=== PATIENT | male | born 1955 | race Caucasian/White ===

== ENCOUNTER 2019-12-18 12:46 | Inpatient (IN) | payer OTHER ==
[~2019-12-18] VITALS: Ht 162.6 cm; Wt 73.0 kg
--- NOTE | 2019-12-18 12:50 | NUR ---
PATIENT TO ER #1 WITH CLINICAL TRANSFORMATION SPECIALIST, SAO2, ABP AND STAT BLOOD GLUCOSE 461
[2019-12-18] MEDS ORDERED: NACL 0.9% 1,000 ML IV ONE (13:00)
--- NOTE | 2019-12-18 13:08 | NUR ---
ER Dr. Pérez at bedside examining patient.
--- NOTE | 2019-12-18 13:10 | NUR ---
Patient presented to ER C/O medication overdose. Patient BIB ACLS, A&Ox4, skin pink & warm, afebrile, denies pain, denies N/V/D. Patient states he gave himself 100 unit pen insulin 70/30 instead of 30 unit insulin pen by accident.
[2019-12-18] MEDS ORDERED: cefTRIAXone 1 GM IVPB PREMIX 50 ML IV ONE (13:15)
[2019-12-18 13:32] LABS: BASOPHILS % (AUTO) 0.5 % (0.0-2.0); EOSINOPHILS # (AUTO) 0.1 K/uL (0.0-0.4); EOSINOPHILS % (AUTO) 2.3 % (0.0-4.0); HEMATOCRIT 31.9 % (36-54); HEMOGLOBIN 11.1 g/dL (14.0-18.0); LYMPHOCYTES # (AUTO) 0.6 K/uL (1.0-5.5); LYMPHOCYTES % (AUTO) 14.6 % (20.5-51.5); MEAN CORPUSCULAR HEMOGLOBIN 30 pg (27-31); MEAN CORPUSCULAR HGB CONC 35 % (32-36); MEAN CORPUSCULAR VOLUME 85 fL (79.0-98.0); MONOCYTES # (AUTO) 0.5 K/uL (0.0-1.0); MONOCYTES % (AUTO) 11.6 % (1.7-9.3); NEUTROPHILS # (AUTO) 2.9 K/uL (1.8-7.7); PLATELET COUNT (AUTO) 68 K/uL (130-430); RED BLOOD CELL COUNT(AUTO) 3.77 MIL/uL (4.2-6.2); RED CELL DISTRIBUTION WIDTH 18.9 % (9.0-15.0); WHITE BLOOD COUNT (AUTO) 4.1 K/uL (4.8-10.8)
[2019-12-18 13:35] VITALS: BP_SYST 131
--- NOTE | 2019-12-18 13:40 | NUR ---
# 20 gauge angiocath placed to right arm. Use of asceptic technique. Opsite placed over site. Blood return noted. Blood for lab drawn from site. Flushed with 10 cc of normal saline. No evidence of infiltration noted. Patient tolerated well. Medicated per MD orders. IVF infusing with no s/s of infiltration at this time. Will cont to monitor
[2019-12-18 13:46] LABS: BILIRUBIN,URINE NEGATIVE (NEGATIVE); BLOOD, URINE NEGATIVE (NEGATIVE); CLARITY/URINE CLEAR (CLEAR); COLOR,URINE YELLOW (YELLOW); GLUCOSE,URINE 3+ (NEGATIVE); KETONES,URINE 1+ (NEGATIVE); LEUKOCYTE ESTERASE ,URINE TRACE (NEGATIVE); NITRITE, URINE POSITIVE (NEGATIVE); PH,URINE 6.5 (5.0-8.0); PROTEIN URINE NEGATIVE (NEGATIVE); UROBILINOGEN,URINE 0.2 (0.2-1.0)
[2019-12-18 13:49] LABS: ALBUMIN 3.1 g/dL (3.4-4.8); CALCIUM 8.6 mg/dL (8.4-11.0); CREATININE 1.32 mg/dL (0.55-1.30); POTASSIUM 5.2 mmol/L (3.5-5.1); TOTAL BILIRUBIN 1.5 mg/dL (0.0-1.0)
[2019-12-18] MEDS ORDERED: SPIR100T5 PO (13:52)
[2019-12-18] MEDS ORDERED: ASCO500C18 PO (13:52)
[2019-12-18] MEDS ORDERED: FURO-149 PO (13:52)
[2019-12-18] MEDS ORDERED: ENAL20TA70 PO (13:52)
[2019-12-18] MEDS ORDERED: RIFA550T5 PO (13:52)
[2019-12-18] MEDS ORDERED: BETH25TA PO (13:52)
[2019-12-18] MEDS ORDERED: CHOL100034 PO (13:52)
[2019-12-18] MEDS ORDERED: FOLI-43 PO (13:52)
[2019-12-18] MEDS ORDERED: PROP20TA7 PO (13:52)
[2019-12-18 14:02] LABS: BACTERIA,URINE MANY /HPF (None Seen); MUCUS,URINE 1+ /LPF (None Seen)
[2019-12-18] MEDS ORDERED: NACL 0.9% 1,000 ML IV SCH (15:18)
[2019-12-18] MEDS ORDERED: INSULIN REGULAR, HUMAN 10 UNITS/0.1 ML INJ IVP ONE (15:45)
[2019-12-18] MEDS ORDERED: DOCUSATE SODIUM 100 MG CAPSULE PO PRN (16:15)
[2019-12-18] MEDS ORDERED: MUPIROCIN 2% TOPICAL OINTMENT 22 GM NS PRN (16:15)
[2019-12-18] MEDS ORDERED: DEXTROSE 50% JECT 50 ML DISP.SYRIN IVP PRN (16:15)
[2019-12-18] MEDS ORDERED: ZOLPIDEM TARTRATE 5 MG TABLET PO PRN (16:15)
[2019-12-18] MEDS ORDERED: ACETAMINOPHEN 325 MG TABLET PO PRN (16:15)
[2019-12-18] MEDS ORDERED: POTASSIUM CHLORIDE 20 MEQ TAB.PRT.SR PO PRN (16:15)
[2019-12-18] MEDS ORDERED: cefTRIAXone 1 GM in D5W 50 ML IV ONE (16:15)
[2019-12-18] MEDS ORDERED: LORazepam 2 MG/ML VIAL IVP PRN (16:15)
[2019-12-18] MEDS ORDERED: MAGNESIUM SULFATE 50 ML IV PRN (16:15)
--- NOTE | 2019-12-18 16:16 | NUR ---
Patient will be admitted to care of DR. GOFF. Admitted to TELE unit. Will go to room 100B. Belongings list completed. Complete and up to date summary report printed. SBAR report to be given at bedside with opportunity for questions. Transfer to TELE via ACLS protocol. Licensed nurse present. IV present no signs or symptoms of infiltration.
--- NOTE | 2019-12-18 16:33 | NUR ---
ADMISSION NOTE Received patient from ER via carmen, received report from LOG GETTER. Patient admitted with diagnosis of DIABETES UNCONTROLLED. Patient oriented to hospital routine, call light, toileting and safety-patient verbalized understanding.
--- NOTE | 2019-12-18 17:20 | NUR ---
SENT HOME PT'S BELONGINGS INCLUDING HOME MEDICATIONS AND LICENSE TO PT'S FATHER, SAILAJA.
[2019-12-18] MEDS: NACL 0.9% 1,000 ML IV SCH (17:55)
[2019-12-18] MEDS: INSULIN NPH/REGULAR 70-30, 100 UNITS/ML, 10 ML VIAL SUBCUT SCH (17:58)
[2019-12-18] MEDS: INSULIN LISPRO SLIDING SCALE 100 UNITS/ML VIAL (humaLOG) SUBCUT PRN (18:02)
[2019-12-18 18:07] VITALS: BP_SYST 151
--- NOTE | 2019-12-18 18:15 | NUR ---
ROUTINE MEDS AND ACCUCHECK DONE ROUTINE MEDS ADMINISTERED ORDERED PER MD, EDUCATION GIVEN, TOLERATED WELL. ACCUCHECK DONE, INSULIN COVERAGE ADMINISTERED PER SLIDING SCALE. NO ACUTE DISTRESS NOTED. ALL NEEDS MET. CALL LIGHT IN REACH. CONTINUE TO MONITOR.
--- NOTE | 2019-12-18 18:45 | NUR ---
CLOSING NOTES PT AWAKE, ALERT, AND ORIENTED. NONLABORED BREATHING NOTED ON ROOM AIR. IV LINE INTACT AND PATENT, NO SIGNS OF INFILTRATION NOTED, FLUIDS RUNNING ORDERED PER MD. PT DENIES PAIN AND SOB AT THIS TIME. PT REQUESTED FOR RESTORIL AND NORCO IN ORDER TO SLEEP, WILL VERBALIZED TO MD. NO ACUTE DISTRESS NOTED. ALL NEEDS MET. CALL LIGHT IN REACH. FALL AND ASPIRATION PRECAUTIONS IN PLACE. WILL ENDORSE TO NOC NURSE.
--- NOTE | 2019-12-18 19:14 | NUR ---
SPOKE TO DR. GOFF REGARDING PT'S REQUEST FOR RESTORIL AND NORCO. RECEIVED ORDERS FOR RESTORIL, VERIFIED, AND CARRIED OUT.
[2019-12-18] MEDS ORDERED: HEPARIN SODIUM,PORCINE 5000 UNITS/ML VIAL SUBCUT SCH (21:00)
[2019-12-18] MEDS: TEMAZEPAM 15 MG CAPSULE PO SCH (22:00)
[2019-12-18] MEDS: RIFAXIMIN 550 MG TABLET PO SCH (23:30)
[2019-12-19 00:05] VITALS: BP_SYST 149
[2019-12-19 06:49] LABS: CALCIUM 8.2 mg/dL (8.4-11.0); CREATININE 0.74 mg/dL (0.55-1.30); POTASSIUM 4.9 mmol/L (3.5-5.1)
[2019-12-19 06:54] LABS: BASOPHILS % (AUTO) 0.3 % (0.0-2.0); EOSINOPHILS # (AUTO) 0.2 K/uL (0.0-0.4); EOSINOPHILS % (AUTO) 4.4 % (0.0-4.0); HEMATOCRIT 28.7 % (36-54); HEMOGLOBIN 10.3 g/dL (14.0-18.0); LYMPHOCYTES # (AUTO) 0.6 K/uL (1.0-5.5); LYMPHOCYTES % (AUTO) 14.7 % (20.5-51.5); MEAN CORPUSCULAR HEMOGLOBIN 30 pg (27-31); MEAN CORPUSCULAR HGB CONC 36 % (32-36); MEAN CORPUSCULAR VOLUME 82 fL (79.0-98.0); MONOCYTES # (AUTO) 0.5 K/uL (0.0-1.0); MONOCYTES % (AUTO) 12.4 % (1.7-9.3); NEUTROPHILS # (AUTO) 2.8 K/uL (1.8-7.7); NEUTROPHILS % (AUTO) 68.2 % (40.0-70.0); PLATELET COUNT (AUTO) 54 K/uL (130-430); RED BLOOD CELL COUNT(AUTO) 3.48 MIL/uL (4.2-6.2); RED CELL DISTRIBUTION WIDTH 19.2 % (9.0-15.0); WHITE BLOOD COUNT (AUTO) 4.2 K/uL (4.8-10.8)
[2019-12-19 08:00] VITALS: BP_SYST 137
--- NOTE | 2019-12-19 08:00 | NUR ---
ASSUMPTION OF CARE: RECEIVED PT A/A/OX4, DX:ALTERATION IN METABOLIC,R/T UNCONTROLLED DIABETES, AFEBRILE, VSS, NO S/S OF DISTRESS, BREATH SOUNDS ARE CLEAR, BREATHING UNLABORED, SUPRAPUBIC CATHETER IN PLACE, DRAINING CLEAR, YELLOW URINE TO GRAVITY, IV SITE INTACT, PATENT, NO REDNESS OR SWELLING, ORIENTED TO UNIT, CALL LIGHT PLACED WITHIN REACH, WILL CONT' TO MONITOR AND ASSESS.
--- NOTE | 2019-12-19 08:30 | NUR ---
VISIT: AT BEDSIDE FOR ASSESSMENT OF PT NEW ORDERS GIVEN, WILL CONT' TO MONITOR AND ASSESS.
--- NOTE | 2019-12-19 09:30 | NUR ---
DRILLER HAND: MORNING MEDS GIVEN, PER ORDERED BY Katy, TOLERATED WELL, WILL CONT' TO MONITOR AND ASSESS.
[2019-12-19] MEDS: RIFAXIMIN 550 MG TABLET PO SCH ×2 (10:08→20:59)
[2019-12-19] MEDS: cefTRIAXone 1 GM in D5W 50 ML IV SCH (10:12)
[2019-12-19] MEDS: SPIRONOLACTONE 50 MG TABLET (ALDACTONE) PO SCH (10:12)
[2019-12-19] MEDS: ENALAPRIL MALEATE 5 MG TABLET (VASOTEC) PO SCH (10:13)
[2019-12-19 11:23] VITALS: BP_SYST 145
--- NOTE | 2019-12-19 11:30 | NUR ---
GLUCOSE MONITORING: BLOOD SUGAR PZITU=598, 14 UNITS HUMALOG LISPRO INSULIN GIVEN SQ, TOLERATED WELL, WILL CONT' TO MONITOR AND ASSESS.
[2019-12-19] MEDS: INSULIN LISPRO SLIDING SCALE 100 UNITS/ML VIAL (humaLOG) SUBCUT PRN ×3 (11:45→21:13)
[2019-12-19 15:45] VITALS: BP_SYST 104
--- NOTE | 2019-12-19 17:00 | NUR ---
GLUCOSE MONITORING: BLOOD SUGAR HJVOU=586, 8 UNITS HUMALOG LISPRO INSULIN GIVEN SQ, TOLERATED WELL, WILL CONT' TO MONITOR AND ASSESS.
--- NOTE | 2019-12-19 19:20 | NUR ---
CHANGE OF SHIFT; pt. awake, alert, resting when received. no complaints at this time. IVF infusing. call light within reach.
[2019-12-19 21:00] VITALS: BP_SYST 130
[2019-12-19] MEDS: HYDROcodone/ACETAMIN 10-325 MG TAB PO PRN (21:00)
[2019-12-19] MEDS: TEMAZEPAM 15 MG CAPSULE PO SCH (21:00)
--- NOTE | 2019-12-19 21:00 | NUR ---
NOTES: pt. repositioned,had loose bm , javier care done. repositioned and turn to sides. BS checked 169, pt. did not eat, will hold sliding scale coverage. Addendum: 12/19/19 at 9932 by Eula Cortes RN wrong pt.
--- NOTE | 2019-12-19 21:00 | NUR ---
NOTES: medicated with [place] po for c/o lower back pain. repositioned self for comfort. VS checked. IVF infusing via rt. forearm. pt. wants his sleeping pill as well.
[2019-12-19] MEDS: NACL 0.9% 1,000 ML IV SCH (21:15)
--- NOTE | 2019-12-19 21:30 | NUR ---
NOTES: BS checked 239, with sliding scale coverage. due medication given. pt. needs attended. on ekg monitor and shows sinus rhythm. call light within reach.
--- NOTE | 2019-12-19 22:00 | NUR ---
NOTES: pt. son at bedside, staying for the night, charge nurse Komal caldera. Addendum: 12/19/19 at 2254 by Eula Cortes RN wrong pt.
--- NOTE | 2019-12-19 23:01 | NUR ---
NOTES: pt. resting, no further complaints.
[2019-12-20 00:29] VITALS: BP_SYST 113
--- NOTE | 2019-12-20 01:00 | NUR ---
NOTES: pt. sleeping, no distress. repositioned self.
--- NOTE | 2019-12-20 02:28 | NUR ---
NOTES: pt. awakened to replace new battery on the monitor box. no further complaints.
--- NOTE | 2019-12-20 04:07 | NUR ---
NOTES: condition unchanged. pt. been sleeping.
--- NOTE | 2019-12-20 05:26 | NUR ---
NOTES: pt. been ambulating to the restroom, had 3 BM per ZOOLOGY TEACHER Sultana. supra pubic catheter intact. pt. needs attended.
[2019-12-20] MEDS: INSULIN NPH/REGULAR 70-30, 100 UNITS/ML, 10 ML VIAL SUBCUT SCH ×2 (06:18→17:37)
[2019-12-20] MEDS: INSULIN LISPRO SLIDING SCALE 100 UNITS/ML VIAL (humaLOG) SUBCUT PRN ×4 (06:19→20:53)
[2019-12-20] MEDS: HYDROcodone/ACETAMIN 10-325 MG TAB PO PRN ×3 (06:23→20:49)
--- NOTE | 2019-12-20 06:25 | NUR ---
CLOSING NOTES; 'PT. MEDICATED FOR C/O LOWER BACK PAIN, AMBULATED TO THE RESTROOM. SUPRA PUBIC CATHETER INTACT. BS CHECKED 272 WITH SLIDING SCALE COVERAGE AND 70/30 SCHEDULED. CALL LIGHT AT BEDSIDE. IVF PATENT.
[2019-12-20 06:28] LABS: CALCIUM 7.7 mg/dL (8.4-11.0); CREATININE 0.74 mg/dL (0.55-1.30); POTASSIUM 4.5 mmol/L (3.5-5.1)
[2019-12-20 06:29] LABS: BASOPHILS % (AUTO) 0.3 % (0.0-2.0); EOSINOPHILS # (AUTO) 0.2 K/uL (0.0-0.4); EOSINOPHILS % (AUTO) 4.2 % (0.0-4.0); HEMATOCRIT 30.4 % (36-54); HEMOGLOBIN 10.8 g/dL (14.0-18.0); LYMPHOCYTES # (AUTO) 0.6 K/uL (1.0-5.5); LYMPHOCYTES % (AUTO) 15.6 % (20.5-51.5); MEAN CORPUSCULAR HEMOGLOBIN 30 pg (27-31); MEAN CORPUSCULAR HGB CONC 36 % (32-36); MEAN CORPUSCULAR VOLUME 83 fL (79.0-98.0); MONOCYTES # (AUTO) 0.4 K/uL (0.0-1.0); MONOCYTES % (AUTO) 11.1 % (1.7-9.3); NEUTROPHILS # (AUTO) 2.8 K/uL (1.8-7.7); NEUTROPHILS % (AUTO) 68.8 % (40.0-70.0); PLATELET COUNT (AUTO) 52 K/uL (130-430); RED BLOOD CELL COUNT(AUTO) 3.65 MIL/uL (4.2-6.2); RED CELL DISTRIBUTION WIDTH 18.8 % (9.0-15.0)
[2019-12-20] MEDS: NACL 0.9% 1,000 ML IV SCH ×3 (06:29→21:03)
--- NOTE | 2019-12-20 07:03 | NUR ---
ATTENDING MD SACK FILLER DR Aniyah HARTLEY (SACK FILLER FOR DR GOFF) WAS CALLED, RE: CRITICAL LABS.
--- NOTE | 2019-12-20 07:30 | NUR ---
OPENING NOTES: RECEIVED PATIENT FROM REGISTERED SALES ASSISTANT NURSE. PATIENT IS ASLEEP LAYING DOWN IN BED. PATIENT IS TOLERATING OXYGEN ON ROOM AIR WITH NO SIGNS OF DISTRESS OR SHORTNESS OF BREATH NOTED. IV SITE IS PATENT WITH NO SIGNS OF INFILTRATION NOTED. KING CATHETER INTACT AND DRAINING BY GRAVITY. PATIENT IN STABLE CONDITION. SAFETY, FALL, AND ASPIRATION PRECAUTIONS ARE IN PLACE. BED LOCKED IN LOWEST POSITION WITH CALL LIGHT IN REACH. WILL CONTINUE TO MONITOR PATIENT FOR ANY CHANGES.
[2019-12-20 08:00] VITALS: BP_SYST 118
--- NOTE | 2019-12-20 08:29 | NUR ---
Nephro consult called: for Dr. Morris (Dr Bruce diamond mounter, regarding low sodium, ordered by Dr. Knowles, spoke with Maximilian.
[2019-12-20] MEDS: cefTRIAXone 1 GM in D5W 50 ML IV SCH (09:29)
[2019-12-20] MEDS: RIFAXIMIN 550 MG TABLET PO SCH ×2 (09:30→20:47)
[2019-12-20] MEDS: SPIRONOLACTONE 50 MG TABLET (ALDACTONE) PO SCH (09:30)
[2019-12-20] MEDS: SODIUM CHLORIDE 500 MG TABLET PO SCH (09:31)
[2019-12-20] MEDS: ENALAPRIL MALEATE 5 MG TABLET (VASOTEC) PO SCH (09:31)
--- NOTE | 2019-12-20 10:20 | NUR ---
RN ROUNDS: PATIENT IS AWAKE AND ALERT x4 LAYING DOWN IN BED. PATIENT DENIES ANY PAIN AT THE MOMENT. IV SITE IS PATENT WITH NO SIGNS OF INFILTRATION NOTED. PATIENT IS TOLERATING OXYGEN ON ROOM AIR WITH NO SIGNS OF DISTRESS OR SHORTNESS OF BREATH NOTED. PATIENT IN STABLE CONDITION. WILL CONTINUE TO MONITOR PATIENT FOR ANY CHANGES.
[2019-12-20 11:28] VITALS: BP_SYST 148
[2019-12-20] MEDS: ONDANSETRON HCL 4 MG/2 ML VIAL IVP PRN ×2 (11:47→18:15)
[2019-12-20 12:06] LABS: ALBUMIN 2.8 g/dL (3.4-4.8); CALCIUM 7.6 mg/dL (8.4-11.0); CREATININE 0.78 mg/dL (0.55-1.30); POTASSIUM 4.8 mmol/L (3.5-5.1); TOTAL BILIRUBIN 1.3 mg/dL (0.0-1.0)
--- NOTE | 2019-12-20 12:20 | NUR ---
RN ROUNDS: PATIENT IS ASLEEP LAYING DOWN IN BED. PATIENT DENIES ANY PAIN AT THE MOMENT. PATIENT IS TOLERATING OXYGEN ON ROOM AIR WITH NO SIGNS OF DISTRESS OR SHORTNESS OF BREATH NOTED. IV SITE IS PATENT WITH NO SIGNS OF INFILTRATION NOTED. PATIENT IN STABLE CONDITION. WILL CONTINUE TO MONITOR PATIENT FOR ANY CHANGES.
[2019-12-20] MEDS ORDERED: SODIUM CHLORIDE 500 MG TABLET PO ONE ×2 (13:45→18:45)
[2019-12-20] MEDS ORDERED: LACTULOSE 20 GM/30 ML UDC PO ONE (13:45)
--- NOTE | 2019-12-20 14:11 | NUR ---
RN ROUNDS: PATIENT IS AWAKE AND ALERT x4 LAYING DOWN IN BED. PATIENT STATES HE HAS PAIN 6/10. PRN PAIN MEDICATION GIVEN. IV SITE IS PATENT WITH NO SIGNS OF INFILTRATION NOTED. PATIENT IN STABLE CONDITION. WILL CONTINUE TO MONITOR PATIENT FOR ANY CHANGES.
[2019-12-20 15:29] VITALS: BP_SYST 148
--- NOTE | 2019-12-20 16:40 | NUR ---
RN ROUNDS: PATIENT IS AWAKE AND ALERT x4 LAYING DOWN IN BED. PATIENT DENIES ANY PAIN AT THE MOMENT. PATIENT IS TOLERATING OXYGEN ON ROOM AIR WITH NO SIGNS OF DISTRESS OR SHORTNESS OF BREATH NOTED. PATIENT IN STABLE CONDITION. WILL CONTINUE TO MONITOR PATIENT FOR ANY CHANGES.
[2019-12-20 18:10] LABS: CALCIUM 8.1 mg/dL (8.4-11.0); CREATININE 0.92 mg/dL (0.55-1.30)
--- NOTE | 2019-12-20 18:29 | NUR ---
CLOSING NOTES: PATIENT IS AWAKE AND ALERT x4 LAYING DOWN IN BED. PATIENT IS TOLERATING OXYGEN ON ROOM AIR WITH NO SIGNS OF DISTRESS OR SHORTNESS OF BREATH NOTED. IV SITE IS PATENT WITH NO SIGNS OF INFILTRATION NOTED. KING CATHETER INTACT AND DRAINING BY GRAVITY. PATIENT IN STABLE CONDITION. SAFETY, FALL, AND ASPIRATION PRECAUTIONS REMAINED IN PLACE THROUGHOUT THE SHIFT. BED LOCKED IN LOWEST POSITION WITH CALL LIGHT IN REACH. WILL ENDORSE PATIENT CARE TO ONCOMING STONEMASON HELPER NURSE.
--- NOTE | 2019-12-20 18:35 | NUR ---
MD CALLED: SPOKE WITH DR. PEREIRA REGARDING PATIENT'S SODIUM BEING LOW AND PATIENT'S REQUEST FOR MEDICATION FOR GERD. NEW ORDERS GIVEN.
[2019-12-20] MEDS ORDERED: FAMOTIDINE 20 MG TABLET PO ONE (18:45)
--- NOTE | 2019-12-20 19:45 | NUR ---
A/A/O X3.DENIES ANY DISCOMFORT @ THIS TIME.DENIES SOB.IVF NS @ 80 ML/HR INFUSING WELL.INSTRUCTED TO USE CALL LIGHT NEEDED;WITHIN REACH.
[2019-12-20 20:00] VITALS: BP_SYST 119
[2019-12-20] MEDS: TEMAZEPAM 15 MG CAPSULE PO SCH (20:47)
--- NOTE | 2019-12-20 21:00 | NUR ---
@2044 C/O SEVERE PAIN ON HIS LOWER BACK.NORCO 1 TAB PO ADM.FINGER STICK BLD SUGAR 313.HUMALOG 8 UNITS SUB Q ADM.SNACKS GIVEN.
--- NOTE | 2019-12-20 22:00 | NUR ---
FOUND RESTING COMFORTABLY POST NORCO IN NO ACUTE DISTRESS.
[2019-12-21 00:01] VITALS: BP_SYST 132
--- NOTE | 2019-12-21 02:00 | NUR ---
SLEEPING WITH BOTH EYES CLOSED.NO ACUTE DISTRESS.IVF INFUSING WELL.
--- NOTE | 2019-12-21 04:00 | NUR ---
ASLEEP IN NO ACUTE DISTRESS.IVF INFUSING WELL.
[2019-12-21] MEDS: HYDROcodone/ACETAMIN 10-325 MG TAB PO PRN (04:22)
[2019-12-21] MEDS: ONDANSETRON HCL 4 MG/2 ML VIAL IVP PRN (04:48)
--- NOTE | 2019-12-21 06:30 | NUR ---
FINGERSTICK BLD SUGAR 196.HUMOLOG 2 UNITS SUB Q ADM.
[2019-12-21 06:31] LABS: BASOPHILS % (AUTO) 0.5 % (0.0-2.0); EOSINOPHILS # (AUTO) 0.1 K/uL (0.0-0.4); EOSINOPHILS % (AUTO) 4.1 % (0.0-4.0); HEMATOCRIT 27.3 % (36-54); HEMOGLOBIN 9.7 g/dL (14.0-18.0); LYMPHOCYTES # (AUTO) 0.6 K/uL (1.0-5.5); LYMPHOCYTES % (AUTO) 18.4 % (20.5-51.5); MEAN CORPUSCULAR HEMOGLOBIN 30 pg (27-31); MEAN CORPUSCULAR HGB CONC 36 % (32-36); MEAN CORPUSCULAR VOLUME 84 fL (79.0-98.0); MONOCYTES # (AUTO) 0.4 K/uL (0.0-1.0); MONOCYTES % (AUTO) 11.9 % (1.7-9.3); NEUTROPHILS % (AUTO) 65.1 % (40.0-70.0); RED BLOOD CELL COUNT(AUTO) 3.26 MIL/uL (4.2-6.2); RED CELL DISTRIBUTION WIDTH 18.8 % (9.0-15.0); WHITE BLOOD COUNT (AUTO) 3.1 K/uL (4.8-10.8)
[2019-12-21] MEDS: INSULIN LISPRO SLIDING SCALE 100 UNITS/ML VIAL (humaLOG) SUBCUT PRN ×2 (06:36→11:22)
[2019-12-21] MEDS: INSULIN NPH/REGULAR 70-30, 100 UNITS/ML, 10 ML VIAL SUBCUT SCH (06:37)
--- NOTE | 2019-12-21 06:50 | NUR ---
ENDORSED IN NO ACUTE DISTRESS.IVF INFUSING WELL.NO S/S OF HYPO/HYPERGLYCEMIA NOTED.SAFETY MAINTAINED.
[2019-12-21 06:54] LABS: CALCIUM 7.7 mg/dL (8.4-11.0); CREATININE 0.74 mg/dL (0.55-1.30)
--- NOTE | 2019-12-21 07:23 | NUR ---
OPENING NOTES: RECEIVED PATIENT FROM LIQUEFIER NURSE. PATIENT IS ASLEEP LAYING DOWN IN BED. PATIENT IS TOLERATING OXYGEN ON ROOM AIR WITH NO SIGNS OF DISTRESS OR SHORTNESS OF BREATH NOTED. IV SITE IS PATENT WITH NO SIGNS OF INFILTRATION NOTED. SUPRAPUBIC CATHETER INTACT AND DRAINING BY GRAVITY. PATIENT IN STABLE CONDITION. SAFETY, FALL, AND ASPIRATION PRECAUTIONS ARE IN PLACE. BED LOCKED IN LOWEST POSITION WITH CALL LIGHT IN REACH. WILL CONTINUE TO MONITOR PATIENT FOR ANY CHANGES.
[2019-12-21 07:38] LABS: PLATELET COUNT (AUTO) 43 K/uL (130-430)
[2019-12-21] MEDS: cefTRIAXone 1 GM in D5W 50 ML IV SCH (08:28)
[2019-12-21] MEDS: SPIRONOLACTONE 50 MG TABLET (ALDACTONE) PO SCH (08:29)
[2019-12-21] MEDS: RIFAXIMIN 550 MG TABLET PO SCH (08:29)
[2019-12-21] MEDS: SODIUM CHLORIDE 500 MG TABLET PO SCH (08:30)
[2019-12-21] MEDS: ENALAPRIL MALEATE 5 MG TABLET (VASOTEC) PO SCH (08:30)
[2019-12-21 08:32] VITALS: BP_SYST 130
[2019-12-21] MEDS: NACL 0.9% 1,000 ML IV SCH (08:52)
[2019-12-21] MEDS ORDERED: LACTULOSE 20 GM/30 ML UDC PO SCH (09:00)
[2019-12-21] MEDS ORDERED: SODIUM CHLORIDE 500 MG TABLET PO SCH (09:00)
[2019-12-21 09:34] VITALS: BP_SYST 130
--- NOTE | 2019-12-21 10:20 | NUR ---
RN ROUNDS/MD ROUNDS: PATIENT IS AWAKE AND ALERT x4 LAYING DOWN IN BED. PATIENT STATES HE WANTS TO GO HOME. DR. HARTLEY AT BEDSIDE WITH PATIENT. PATIENT IS TOLERATING OXYGEN ON ROOM AIR WITH NO SIGNS OF DISTRESS OR SHORTNESS OF BREATH NOTED. IV SITE IS PATENT WITH NO SIGNS OF INFILTRATION NOTED. PATIENT IN STABLE CONDITION. WILL CONTINUE TO MONITOR PATIENT FOR ANY CHANGES.
[2019-12-21] MEDS ORDERED: INSNPH7030 SUBCUT (10:47)
--- NOTE | 2019-12-21 11:27 | NUR ---
Dietitian Recommendations *Recommend continue [facility] diet. *Recommend provide Glucerna BID to help optimize nutritional intake 00 provides additional 360 kcal, 20 g protein. Please see Nutrition Assessment for details. RAYMOND,RD
[2019-12-21 11:30] VITALS: BP_SYST 120
--- NOTE | 2019-12-21 11:45 | NUR ---
D/C Patient: Patient given medication reconciliation form and D/C instructions. Exit Care provided. Patient verbalized understanding. MD discussed with patient the results and treatment provided. Ambulatory with steady gait for discharge to home. Patient in stable condition, ID band removed. IV catheter removed, intact and dressing applied, no active bleeding. Rx of NOVOLIN 70-30 given. Patient and nephew educated on pain management and managing his glucose levels. All belongings sent with patient.
[2019-12-21] MEDS ORDERED: CEPH-568 PO (17:13)
== END 2019-12-21 11:45 | disposition home or self-care (01) | DRG 637 ==
LOC: SED 12:46 → STU 15:27
PROVIDERS: ADMIT General Practice; ATTEND General Practice
DX: E10.65 Type 1 diabetes mellitus with hyperglycemia (principal); N17.0 Acute kidney failure with tubular necrosis; E87.1 Hypo-osmolality and hyponatremia; N39.0 Urinary tract infection, site not specified; E44.1 Mild protein-calorie malnutrition; E87.2 Acidosis; E10.69 Type 1 diabetes mellitus with other specified complication; E87.5 Hyperkalemia; D69.59 Other secondary thrombocytopenia; M79.606 Pain in leg, unspecified; K74.60 Unspecified cirrhosis of liver; G89.29 Other chronic pain; M54.9 Dorsalgia, unspecified; I10 Essential (primary) hypertension; Z79.4 Long term (current) use of insulin; Z88.6 Allergy status to analgesic agent; Z88.0 Allergy status to penicillin; Z88.2 Allergy status to sulfonamides; Z79.899 Other long term (current) drug therapy
CPT/HCPCS: 36415; 36600; 71045; 80048; 80053; 81000-TC; 82009-TC; 82550-TC; 82803-TC; 82962; 83036; 83605; 83735-TC; 85025; 87040-TC; 87086; 87186-TC; 93005; 96365; 99285; G0378; J0696; J1815; J2405; J3475; J7030; J7060

== ENCOUNTER 2021-07-09 00:02 | Inpatient (IN) | payer OTHER, MEDICAID, SELFPAY ==
[~2021-07-09] VITALS: Ht 162.6 cm; Wt 70.3 kg
[~2021-07-09 00:02] MED LIST: ASCO500C18 PO; BETH25TA PO; CEPH-568 PO; CHOL100034 PO; ENAL20TA70 PO; FOLI-43 PO; FURO-149 PO; INSNPH7030 SUBCUT; PROP20TA7 PO; RIFA550T5 PO; SPIR100T5 PO
[2021-07-09 00:15] VITALS: BP_SYST 178
[2021-07-09 01:35] LABS: CREATININE 1.06 mg/dL (0.55-1.30); POTASSIUM 4.3 mmol/L (3.5-5.1)
[2021-07-09 01:48] LABS: ALBUMIN 3.3 g/dL (3.4-4.8); TOTAL BILIRUBIN 2.1 mg/dL (0.0-1.0)
[2021-07-09 02:23] LABS: BASOPHILS % (AUTO) 0.2 % (0.0-2.0); EOSINOPHILS % (AUTO) 0.7 % (0.0-4.0); HEMATOCRIT 38.1 % (36-54); HEMOGLOBIN 13.8 g/dL (14.0-18.0); LYMPHOCYTES # (AUTO) 0.5 K/uL (1.0-5.5); LYMPHOCYTES % (AUTO) 10.2 % (20.5-51.5); MEAN CORPUSCULAR HEMOGLOBIN 33 pg (27-31); MEAN CORPUSCULAR HGB CONC 36 % (32-36); MEAN CORPUSCULAR VOLUME 92 fL (79.0-98.0); MONOCYTES # (AUTO) 0.4 K/uL (0.0-1.0); MONOCYTES % (AUTO) 8.8 % (1.7-9.3); NEUTROPHILS # (AUTO) 3.9 K/uL (1.8-7.7); NEUTROPHILS % (AUTO) 80.1 % (40.0-70.0); PLATELET COUNT (AUTO) 50 K/uL (130-430); RED BLOOD CELL COUNT(AUTO) 4.14 MIL/uL (4.2-6.2); RED CELL DISTRIBUTION WIDTH 13.7 % (9.0-15.0); WHITE BLOOD COUNT (AUTO) 4.9 K/uL (4.8-10.8)
[2021-07-09] MEDS ORDERED: LACTULOSE 20 GM/30 ML UDC PO ONE (03:30)
[2021-07-09 06:17] LABS: BILIRUBIN,URINE NEGATIVE (NEGATIVE); BLOOD, URINE 1+ (NEGATIVE); CLARITY/URINE CLOUDY (CLEAR); COLOR,URINE YELLOW (YELLOW); GLUCOSE,URINE NEGATIVE (NEGATIVE); KETONES,URINE NEGATIVE (NEGATIVE); LEUKOCYTE ESTERASE ,URINE 2+ (NEGATIVE); NITRITE, URINE NEGATIVE (NEGATIVE); PROTEIN URINE NEGATIVE (NEGATIVE)
[2021-07-09 06:19] LABS: BACTERIA,URINE MANY /HPF (None Seen); MUCUS,URINE 1+ /LPF (None Seen); WBC,URINE 20-50 /HPF (0-3); YEAST,URINE Moderate /HPF (None Seen)
[2021-07-09] MEDS ORDERED: NACL 0.9% 1,000 ML IV ONE (06:30)
[2021-07-09] MEDS ORDERED: LEVOFLOXACIN IN DEXTROSE 5 % 100 ML IV ONE (06:30)
[2021-07-09] MEDS: NACL 0.9% 1,000 ML IV SCH (06:59)
[2021-07-09] MEDS ORDERED: RIFAXIMIN 550 MG TABLET PO ONE (10:00)
[2021-07-09] MEDS: LACTULOSE 20 GM/30 ML UDC PO SCH ×2 (12:18→17:49)
[2021-07-09] MEDS ORDERED: PIPERACILLIN/TAZO 3.375 GM in NS 50 ML IV SCH ×4 (14:00)
[2021-07-09] MEDS ORDERED: TROS20TA2 PO (14:01)
[2021-07-09] MEDS ORDERED: FURO-150 PO (14:01)
[2021-07-09] MEDS ORDERED: HYDR-3927 PO (14:01)
[2021-07-09] MEDS ORDERED: ROPI2TAB7 PO (14:01)
[2021-07-09] MEDS ORDERED: SPIR50TA5 PO (14:01)
[2021-07-09] MEDS ORDERED: FER300L PO (14:01)
[2021-07-09] MEDS ORDERED: DOCU-144 PO (14:01)
[2021-07-09] MEDS ORDERED: RIFA550T5 PO (14:01)
[2021-07-09] MEDS ORDERED: TEMA30CA5 PO (14:01)
[2021-07-09] MEDS ORDERED: PRO40 PO (14:01)
[2021-07-09] MEDS ORDERED: POTA99TA24 (14:07)
[2021-07-09] MEDS ORDERED: PIPERACILLIN/TAZOBACTAM 3.375 GM/VIAL (ZOSYN) IV ONE (14:11)
[2021-07-09] MEDS ORDERED: INSULIN REGULAR, HUMAN 10 UNITS/0.1 ML INJ ONE (17:41)
[2021-07-09] MEDS: INSULIN REGULAR, HUMAN 100 UNITS/ML, 10 ML VIAL (humuLIN R) SUBCUT PRN (17:48)
[2021-07-09] MEDS ORDERED: cefTRIAXone 1 GM in D5W 50 ML IV SCH (21:00)
[2021-07-09] MEDS ORDERED: cefTRIAXone 1 GM IVPB PREMIX 50 ML IV ONE (21:09)
[2021-07-09] MEDS ORDERED: RIFAXIMIN 200 MG TABLET ONE (21:50)
[2021-07-09] MEDS: RIFAXIMIN 550 MG TABLET PO SCH (21:59)
[2021-07-10] MEDS ORDERED: LACTULOSE 20 GM/30 ML UDC ONE (00:49)
[2021-07-10] MEDS: LACTULOSE 20 GM/30 ML UDC PO SCH ×3 (01:06→12:13)
[2021-07-10] MEDS: NACL 0.9% 1,000 ML IV SCH (03:32)
[2021-07-10 05:26] LABS: ALANINE AMINOTRANSFERASE 43 U/L (12-78); ANION GAP 10 (5-15); ASPARTATE AMINOTRANSFERASE 34 U/L (10-37); CALCIUM 8.5 mg/dL (8.4-11.0); CHLORIDE 98 mmol/L (98-107); CREATININE 0.91 mg/dL (0.55-1.30); GLUCOSE 234 mg/dL (70-99); LIPASE 25 U/L (73-393); POTASSIUM 4.6 mmol/L (3.5-5.1); SODIUM SERUM 131 mmol/L (136-145); TOTAL BILIRUBIN 1.7 mg/dL (0.0-1.0); UREA NITROGEN, BLOOD 11 mg/dL (8-21)
[2021-07-10 05:47] LABS: BASOPHILS % (AUTO) 0.3 % (0.0-2.0); EOSINOPHILS # (AUTO) 0.1 K/uL (0.0-0.4); EOSINOPHILS % (AUTO) 2.4 % (0.0-4.0); HEMATOCRIT 37.1 % (36-54); HEMOGLOBIN 13.2 g/dL (14.0-18.0); LYMPHOCYTES # (AUTO) 0.6 K/uL (1.0-5.5); LYMPHOCYTES % (AUTO) 11.7 % (20.5-51.5); MEAN CORPUSCULAR HEMOGLOBIN 33 pg (27-31); MEAN CORPUSCULAR HGB CONC 36 % (32-36); MEAN CORPUSCULAR VOLUME 93 fL (79.0-98.0); MONOCYTES # (AUTO) 0.6 K/uL (0.0-1.0); MONOCYTES % (AUTO) 11.2 % (1.7-9.3); NEUTROPHILS % (AUTO) 74.4 % (40.0-70.0); PLATELET COUNT (AUTO) 53 K/uL (130-430); RED BLOOD CELL COUNT(AUTO) 3.99 MIL/uL (4.2-6.2); RED CELL DISTRIBUTION WIDTH 13.5 % (9.0-15.0); WHITE BLOOD COUNT (AUTO) 5.3 K/uL (4.8-10.8)
[2021-07-10 05:48] LABS: INR 1.2 (0.80-1.20); PROTHROMBIN TIME 12.2 SECS (9.5-12.5)
[2021-07-10 05:52] LABS: GFR AFRICAN AMERICAN 107 mL/min (>90)
[2021-07-10 06:11] LABS: ACETAMINOPHEN < 1 ug/mL (1-30)
[2021-07-10 06:12] LABS: TOTAL IRON BIND. CAPACITY 232 ug/dL (250-450)
[2021-07-10] MEDS ORDERED: INSULIN REGULAR, HUMAN 10 UNITS/0.1 ML INJ ONE ×2 (06:28→09:45)
[2021-07-10] MEDS: INSULIN REGULAR, HUMAN 100 UNITS/ML, 10 ML VIAL (humuLIN R) SUBCUT PRN (06:33)
[2021-07-10] MEDS: RIFAXIMIN 550 MG TABLET PO SCH (09:03)
[2021-07-10] MEDS ORDERED: INSULIN GLARGINE 100 UNITS/ML 10 ML VIAL SUBCUT ONE (12:45)
[2021-07-10 15:15] VITALS: BP_SYST 132
[2021-07-11] MEDS ORDERED: INSULIN GLARGINE 100 UNITS/ML 10 ML VIAL SUBCUT SCH (09:00)
[2021-07-11 10:06] LABS: FERRITIN 388 ng/mL (30-400)
[2021-07-11 11:06] LABS: AFP, TUMOR MARKER 2.5 ng/mL (0.0-8.3)
[2021-07-11 15:06] LABS: ANTI NUCLEAR AB WITH REFLEX Negative (Negative)
[2021-07-12 08:06] LABS: HEPATITIS A AB, IgM Negative (Negative); HEPATITIS B CORE AB, IgM Negative (Negative); HEPATITIS B SURFACE AG Negative (Negative)
[2021-07-13 02:06] LABS: ALPHA-1-ANTITRYPSIN, S 127 mg/dL (101-187)
[2021-07-13 09:06] LABS: ANTI-SMOOTH MUSCLE AB 10 Units (0-19)
== END 2021-07-10 14:51 | disposition home or self-care (01) | DRG 637 ==
LOC: SED 00:02 → STU 06:25
PROVIDERS: ADMIT Internal Medicine; ATTEND Internal Medicine
DX: E11.00 Type 2 diabetes mellitus with hyperosmolarity without nonketotic hyperglycemic-hyperosmolar coma (NKHHC) (principal); G93.41 Metabolic encephalopathy; N39.0 Urinary tract infection, site not specified; D64.9 Anemia, unspecified; D69.6 Thrombocytopenia, unspecified; I10 Essential (primary) hypertension; K74.60 Unspecified cirrhosis of liver; N31.9 Neuromuscular dysfunction of bladder, unspecified; Z20.822 Contact with and (suspected) exposure to COVID-19; G89.29 Other chronic pain; M54.9 Dorsalgia, unspecified; Z88.0 Allergy status to penicillin; Z88.2 Allergy status to sulfonamides; Z88.6 Allergy status to analgesic agent; Z79.899 Other long term (current) drug therapy
CPT/HCPCS: 36415; 71045; 80053; 80074; 81000; 82103; 82105; 82140; 82728; 82962; 82977; 83516; 83540; 83550; 83690; 85025; 85610-TC; 85730-TC; 86038; 87040; 87086; 93005; 96374; 99285; G0378; G0480; J0696; J1815; J2543; J7060

== ENCOUNTER 2021-10-04 01:21 | Inpatient (IN) | payer OTHER, MEDICAID ==
[~2021-10-04] VITALS: Ht 162.6 cm; Wt 72.6 kg
[~2021-10-04 01:21] MED LIST changes: +DOCU-144 PO; +FER300L PO; +FURO-150 PO; +HYDR-3927 PO; -INSNPH7030 SUBCUT; +LEVO500T90 PO; +POTA99TA24; +PRO40 PO; +ROPI2TAB7 PO; +SPIR50TA5 PO; +TROS20TA2 PO
[2021-10-04 01:25] VITALS: BP_SYST 138
[2021-10-04 02:48] LABS: BASOPHILS % (AUTO) 0.9 % (0.0-2.0); EOSINOPHILS # (AUTO) 0.2 K/uL (0.0-0.4); EOSINOPHILS % (AUTO) 4.1 % (0.0-4.0); HEMATOCRIT 34.7 % (36-54); HEMOGLOBIN 12.3 g/dL (14.0-18.0); LYMPHOCYTES # (AUTO) 0.9 K/uL (1.0-5.5); LYMPHOCYTES % (AUTO) 17.9 % (20.5-51.5); MEAN CORPUSCULAR HEMOGLOBIN 33 pg (27-31); MEAN CORPUSCULAR HGB CONC 35 % (32-36); MEAN CORPUSCULAR VOLUME 93 fL (79.0-98.0); MONOCYTES # (AUTO) 0.5 K/uL (0.0-1.0); MONOCYTES % (AUTO) 11.2 % (1.7-9.3); NEUTROPHILS # (AUTO) 3.2 K/uL (1.8-7.7); NEUTROPHILS % (AUTO) 65.9 % (40.0-70.0); PLATELET COUNT (AUTO) 53 K/uL (130-430); RED BLOOD CELL COUNT(AUTO) 3.73 MIL/uL (4.2-6.2); RED CELL DISTRIBUTION WIDTH 14.2 % (9.0-15.0); WHITE BLOOD COUNT (AUTO) 4.8 K/uL (4.8-10.8)
[2021-10-04 03:07] LABS: ANION GAP 9 (5-15); CALCIUM 9.7 mg/dL (8.4-11.0); CHLORIDE 95 mmol/L (98-107); CREATININE 1.06 mg/dL (0.55-1.30); GLUCOSE 295 mg/dL (70-99); POTASSIUM 4.5 mmol/L (3.5-5.1); SODIUM SERUM 129 mmol/L (136-145); UREA NITROGEN, BLOOD 21 mg/dL (8-21)
[2021-10-04 03:16] LABS: ALANINE AMINOTRANSFERASE 36 U/L (12-78); ALBUMIN 2.9 g/dL (3.4-4.8); ASPARTATE AMINOTRANSFERASE 47 U/L (10-37); TOTAL BILIRUBIN 1.7 mg/dL (0.0-1.0)
[2021-10-04 03:18] LABS: GFR AFRICAN AMERICAN 89 mL/min (>90)
[2021-10-04 03:19] LABS: ALCOHOL, BLOOD < 3 mg/dL (<10)
[2021-10-04 03:21] LABS: INR 1.1 (0.80-1.20); PROTHROMBIN TIME 11.8 SECS (9.5-12.5)
[2021-10-04] MEDS ORDERED: INSULIN REGULAR, HUMAN 10 UNITS/0.1 ML INJ SUBCUT ONE ×2 (04:15→05:30)
[2021-10-04 04:54] LABS: BILIRUBIN,URINE NEGATIVE (NEGATIVE); CLARITY/URINE CLEAR (CLEAR); COLOR,URINE YELLOW (YELLOW); GLUCOSE,URINE 1+ (NEGATIVE); KETONES,URINE NEGATIVE (NEGATIVE); LEUKOCYTE ESTERASE ,URINE 1+ (NEGATIVE); NITRITE, URINE NEGATIVE (NEGATIVE); PH,URINE 5.5 (5.0-8.0); PROTEIN URINE TRACE (NEGATIVE); UROBILINOGEN,URINE 0.2 (0.2-1.0)
[2021-10-04 05:05] LABS: BLOOD, URINE TRACE (NEGATIVE)
[2021-10-04 05:20] LABS: BARBITURATE, URINE NEGATIVE (NEG <=200); BENZODIAZEPINE, URINE POSITIVE (NEG <=150); CANNABINOID, URINE POSITIVE (NEG <=50); COCAINE, URINE NEGATIVE (NEG <=150); METHAMPHETAMINES SCREEN,URINE NEGATIVE (NEG <=500); URINE AMPHETAMINE NEGATIVE (NEG <=500); URINE METHADONE NEGATIVE (NEG <=200)
[2021-10-04 05:21] LABS: OPIATE, URINE NEGATIVE (NEG <=100); PHENCYCLIDINE SCREEN,URINE NEGATIVE (NEG <=25); UR TRICYCLIC ANTIDEPRESSANTS NEGATIVE (NEG <=300); URINE OXYCODONE SCREEN NEGATIVE (NEG <=100); URINE PROPOXYPHENE SCREEN NEGATIVE (NEG <=300)
[2021-10-04 05:33] LABS: BACTERIA,URINE None Seen /HPF (None Seen); RBC,URINE 0-3 /HPF (0-3); URINE SULFO SALICYLIC ACID NEGATIVE (NEGATIVE); YEAST,URINE Many /HPF (None Seen)
[2021-10-04 05:34] LABS: CALCIUM OXALATE CRYSTALS,UR None Seen /HPF (None Seen); CALCIUM PHOSPHATE CRYSTALS,UR None Seen /HPF (None Seen); COARSE GRANULAR CASTS,URINE None Seen /LPF (None Seen); FINE GRANULAR CASTS,URINE None Seen /LPF (None Seen); MUCUS,URINE None Seen /LPF (None Seen); OTHER CASTS, URINE None Seen /LPF (None Seen); TRICHOMONAS,URINE None Seen /HPF (None Seen); TRIPLE PHOSPHATE CRYSTAL,UR None Seen /HPF (None Seen); URIC ACID CRYSTALS,URINE None Seen /HPF (None Seen); URINE AMORPHOUS PHOSPHATES None Seen /HPF (None Seen); URINE AMORPHOUS URATE None Seen /HPF (None Seen); WAXY CASTS,URINE None Seen /LPF (None Seen)
[2021-10-04] MEDS: NACL 0.9% 1,000 ML IV SCH ×2 (07:07→21:25)
[2021-10-04 08:45] VITALS: BP_SYST 120
[2021-10-04] MEDS ORDERED: guaiFENesin/DEXTROMETHORPHAN 10 ML UDC PO PRN (10:00)
[2021-10-04] MEDS ORDERED: DOCUSATE SODIUM 100 MG/10 ML UDC PO PRN (10:00)
[2021-10-04] MEDS ORDERED: ACETAMINOPHEN 500 MG TABLET PO PRN (10:00)
[2021-10-04] MEDS ORDERED: ONDANSETRON HCL 4 MG/2 ML VIAL IVP PRN (10:00)
[2021-10-04] MEDS ORDERED: LACTULOSE 20 GM/30 ML UDC PO ONE (10:15)
[2021-10-04] MEDS ORDERED: FUROSEMIDE 40 MG TABLET PO ONE (10:15)
[2021-10-04] MEDS ORDERED: GLUCOSE (DEXTROSE) ORAL GEL -Adults PO PRN (10:15)
[2021-10-04] MEDS ORDERED: DEXTROSE 50% JECT 50 ML DISP.SYRIN IVP PRN (10:15)
[2021-10-04] MEDS ORDERED: SPIRONOLACTONE 50 MG TABLET (ALDACTONE) PO ONE (10:15)
[2021-10-04] MEDS ORDERED: lisinopriL 20 MG TABLET PO ONE (10:15)
[2021-10-04] MEDS ORDERED: D5W 1,000 ML IV PRN (10:15)
[2021-10-04] MEDS ORDERED: RIFAXIMIN 550 MG TABLET PO ONE (10:30)
[2021-10-04 10:34] LABS: FREE T4 (FREE THYROXINE) 0.9 ng/dl (0.8-1.5); THYROID STIMULATING HORMONE 4.53 uIu/mL (0.36-3.74)
[2021-10-04] MEDS: INSULIN LISPRO SLIDING SCALE 100 UNITS/ML VIAL (humaLOG) SUBCUT PRN ×2 (10:55→16:46)
[2021-10-04 12:00] VITALS: BP_SYST 119
[2021-10-04 16:07] VITALS: BP_SYST 107
[2021-10-04 20:15] VITALS: BP_SYST 119
[2021-10-04] MEDS: LACTULOSE 20 GM/30 ML UDC PO SCH (21:25)
[2021-10-04] MEDS: RIFAXIMIN 550 MG TABLET PO SCH (21:26)
[2021-10-04] MEDS: ZOLPIDEM TARTRATE 5 MG TABLET PO PRN (23:34)
[2021-10-05 01:28] VITALS: BP_SYST 123
[2021-10-05] MEDS: NACL 0.9% 1,000 ML IV SCH ×3 (02:11→19:06)
[2021-10-05] MEDS: INSULIN LISPRO SLIDING SCALE 100 UNITS/ML VIAL (humaLOG) SUBCUT PRN ×3 (06:48→21:43)
[2021-10-05 07:55] VITALS: BP_SYST 118
[2021-10-05 08:05] LABS: BASOPHILS % (AUTO) 1.1 % (0.0-2.0); EOSINOPHILS # (AUTO) 0.1 K/uL (0.0-0.4); EOSINOPHILS % (AUTO) 4.6 % (0.0-4.0); HEMATOCRIT 31.1 % (36-54); HEMOGLOBIN 11.1 g/dL (14.0-18.0); LYMPHOCYTES # (AUTO) 0.7 K/uL (1.0-5.5); LYMPHOCYTES % (AUTO) 21.3 % (20.5-51.5); MEAN CORPUSCULAR HEMOGLOBIN 33 pg (27-31); MEAN CORPUSCULAR HGB CONC 36 % (32-36); MEAN CORPUSCULAR VOLUME 93 fL (79.0-98.0); MONOCYTES # (AUTO) 0.3 K/uL (0.0-1.0); MONOCYTES % (AUTO) 8.2 % (1.7-9.3); NEUTROPHILS # (AUTO) 2.1 K/uL (1.8-7.7); NEUTROPHILS % (AUTO) 64.8 % (40.0-70.0); RED BLOOD CELL COUNT(AUTO) 3.36 MIL/uL (4.2-6.2); RED CELL DISTRIBUTION WIDTH 14.2 % (9.0-15.0); WHITE BLOOD COUNT (AUTO) 3.2 K/uL (4.8-10.8)
[2021-10-05 08:44] LABS: CALCIUM 7.7 mg/dL (8.4-11.0); CREATININE 0.77 mg/dL (0.55-1.30)
[2021-10-05] MEDS ORDERED: POTASSIUM CHLORIDE 20 MEQ TAB.PRT.SR PO PRN (09:00)
[2021-10-05] MEDS: lisinopriL 20 MG TABLET PO SCH (09:00)
[2021-10-05] MEDS: RIFAXIMIN 550 MG TABLET PO SCH ×2 (09:02→21:20)
[2021-10-05] MEDS: LACTULOSE 20 GM/30 ML UDC PO SCH ×2 (09:02→21:19)
[2021-10-05] MEDS: FUROSEMIDE 40 MG TABLET PO SCH (09:02)
[2021-10-05] MEDS: SPIRONOLACTONE 50 MG TABLET (ALDACTONE) PO SCH (09:03)
[2021-10-05] MEDS: PANTOPRAZOLE SODIUM 40 MG TAB PO SCH (09:06)
[2021-10-05 09:28] LABS: PLATELET COUNT (AUTO) 38 K/uL (130-430)
[2021-10-05 12:26] VITALS: BP_SYST 126
[2021-10-05 17:27] VITALS: BP_SYST 122
[2021-10-05 20:10] VITALS: BP_SYST 114
[2021-10-05] MEDS: ZOLPIDEM TARTRATE 5 MG TABLET PO PRN (21:31)
[2021-10-06 01:11] VITALS: BP_SYST 103
[2021-10-06] MEDS: NACL 0.9% 1,000 ML IV SCH (05:54)
[2021-10-06 06:02] LABS: CALCIUM 8.6 mg/dL (8.4-11.0); CREATININE 0.83 mg/dL (0.55-1.30); POTASSIUM 4.1 mmol/L (3.5-5.1)
[2021-10-06] MEDS: INSULIN LISPRO SLIDING SCALE 100 UNITS/ML VIAL (humaLOG) SUBCUT PRN (06:58)
[2021-10-06 07:10] LABS: BASOPHILS % (AUTO) 0.3 % (0.0-2.0); EOSINOPHILS # (AUTO) 0.1 K/uL (0.0-0.4); EOSINOPHILS % (AUTO) 3.3 % (0.0-4.0); HEMATOCRIT 32.1 % (36-54); HEMOGLOBIN 11.7 g/dL (14.0-18.0); LYMPHOCYTES # (AUTO) 0.7 K/uL (1.0-5.5); LYMPHOCYTES % (AUTO) 20.2 % (20.5-51.5); MEAN CORPUSCULAR HEMOGLOBIN 33 pg (27-31); MEAN CORPUSCULAR HGB CONC 36 % (32-36); MEAN CORPUSCULAR VOLUME 92 fL (79.0-98.0); MONOCYTES # (AUTO) 0.3 K/uL (0.0-1.0); MONOCYTES % (AUTO) 9.4 % (1.7-9.3); NEUTROPHILS # (AUTO) 2.3 K/uL (1.8-7.7); NEUTROPHILS % (AUTO) 66.8 % (40.0-70.0); WHITE BLOOD COUNT (AUTO) 3.4 K/uL (4.8-10.8)
[2021-10-06 08:00] VITALS: BP_SYST 109
[2021-10-06] MEDS: LACTULOSE 20 GM/30 ML UDC PO SCH (08:44)
[2021-10-06] MEDS: PANTOPRAZOLE SODIUM 40 MG TAB PO SCH (08:44)
[2021-10-06] MEDS: RIFAXIMIN 550 MG TABLET PO SCH (08:44)
[2021-10-06] MEDS: FUROSEMIDE 40 MG TABLET PO SCH (08:45)
[2021-10-06] MEDS: SPIRONOLACTONE 50 MG TABLET (ALDACTONE) PO SCH (08:45)
[2021-10-06] MEDS: lisinopriL 20 MG TABLET PO SCH (08:46)
[2021-10-06] MEDS ORDERED: FLUCONAZOLE 100 MG TABLET (DIFLUCAN) PO SCH (09:00)
[2021-10-06 09:27] LABS: PLATELET COUNT (AUTO) 46 K/uL (130-430)
[2021-10-06 09:52] VITALS: BP_SYST 109
== END 2021-10-06 11:20 | disposition home health service (06) | DRG 442 ==
LOC: SED 01:21 → STU 06:29
PROVIDERS: ADMIT Family Medicine; ATTEND Family Medicine
DX: K72.90 Hepatic failure, unspecified without coma (principal); E87.1 Hypo-osmolality and hyponatremia; E44.0 Moderate protein-calorie malnutrition; N39.0 Urinary tract infection, site not specified; D63.8 Anemia in other chronic diseases classified elsewhere; G89.29 Other chronic pain; E86.0 Dehydration; E11.65 Type 2 diabetes mellitus with hyperglycemia; D69.6 Thrombocytopenia, unspecified; I10 Essential (primary) hypertension; K74.60 Unspecified cirrhosis of liver; Z20.822 Contact with and (suspected) exposure to COVID-19; Z76.82 Awaiting organ transplant status; Z79.4 Long term (current) use of insulin; Z88.0 Allergy status to penicillin; Z88.2 Allergy status to sulfonamides; Z88.8 Allergy status to other drugs, medicaments and biological substances; Z79.2 Long term (current) use of antibiotics; Z79.01 Long term (current) use of anticoagulants; Z79.899 Other long term (current) drug therapy; Z68.27 Body mass index [BMI] 27.0-27.9, adult
CPT/HCPCS: 36415; 70450-TC; 71045; 76376; 80048; 80053; 80061; 80307; 81000; 82140; 82150; 82962; 83036; 83605; 83690; 83735; 83880; 84100; 84439; 84443; 84484; 85025; 85610-TC; 85730-TC; 87081; 96372; 97116-GP; 97530-GP; 99285; G0378; G0482

== ENCOUNTER 2021-10-23 18:54 | Inpatient (IN) | payer OTHER, MEDICAID ==
[~2021-10-23] VITALS: Ht 162.6 cm; Wt 66.7 kg
[2021-10-23 18:55] VITALS: BP_SYST 147
[2021-10-23 19:16] LABS: BASOPHILS % (AUTO) 0.4 % (0.0-2.0); EOSINOPHILS % (AUTO) 0.1 % (0.0-4.0); HEMATOCRIT 37.3 % (36-54); HEMOGLOBIN 13.1 g/dL (14.0-18.0); LYMPHOCYTES # (AUTO) 0.4 K/uL (1.0-5.5); LYMPHOCYTES % (AUTO) 3.9 % (20.5-51.5); MEAN CORPUSCULAR HEMOGLOBIN 34 pg (27-31); MEAN CORPUSCULAR HGB CONC 35 % (32-36); MEAN CORPUSCULAR VOLUME 95 fL (79.0-98.0); MONOCYTES # (AUTO) 0.7 K/uL (0.0-1.0); NEUTROPHILS # (AUTO) 9.2 K/uL (1.8-7.7); NEUTROPHILS % (AUTO) 88.6 % (40.0-70.0); PLATELET COUNT (AUTO) 85 K/uL (130-430); RED BLOOD CELL COUNT(AUTO) 3.91 MIL/uL (4.2-6.2); RED CELL DISTRIBUTION WIDTH 15.6 % (9.0-15.0); WHITE BLOOD COUNT (AUTO) 10.4 K/uL (4.8-10.8)
[2021-10-23 19:41] LABS: C-REACTIVE PROTEIN QUANT 4.2 mg/dL (0-0.5)
[2021-10-23 19:49] LABS: INR 1.2 (0.80-1.20); PROTHROMBIN TIME 12.6 SECS (9.5-12.5)
[2021-10-23 19:54] LABS: ANION GAP 18 (5-15); CALCIUM 10.1 mg/dL (8.4-11.0); CHLORIDE 88 mmol/L (98-107); CREATININE 1.78 mg/dL (0.55-1.30); SODIUM SERUM 123 mmol/L (136-145); UREA NITROGEN, BLOOD 28 mg/dL (8-21)
[2021-10-23 19:57] LABS: GFR AFRICAN AMERICAN 49 mL/min (>90); GLUCOSE 617 mg/dL (70-99)
[2021-10-23 19:59] LABS: ACETAMINOPHEN < 1 ug/mL (1-30); ALANINE AMINOTRANSFERASE 36 U/L (12-78); ALBUMIN 3.4 g/dL (3.4-4.8); AMYLASE 17 U/L (0-100); ASPARTATE AMINOTRANSFERASE 34 U/L (10-37); LIPASE 25 U/L (73-393); TOTAL BILIRUBIN 4.5 mg/dL (0.0-1.0)
[2021-10-23 20:10] LABS: ALCOHOL, BLOOD < 3 mg/dL (<10)
[2021-10-23] MEDS ORDERED: SODIUM POLYSTYRENE SULFONATE 15 GM/60 ML UDBTL PO ONE (21:00)
[2021-10-23] MEDS ORDERED: LACTULOSE 20 GM/30 ML UDC PO ONE (21:00)
[2021-10-23] MEDS ORDERED: SODIUM BICARBONATE 8.4% JECT 50 MEQ/50 ML SYRINGE IVP ONE (21:00)
[2021-10-23] MEDS ORDERED: INSULIN REGULAR, HUMAN 10 UNITS/0.1 ML INJ IVP ONE (21:00)
[2021-10-23] MEDS ORDERED: NACL 0.9% 1,000 ML IV ONE (21:00)
[2021-10-23] MEDS ORDERED: INSULIN REGULAR, HUMAN 100 UNITS in NS 99 ML IV ONE ×2 (21:15)
[2021-10-23 23:00] VITALS: BP_SYST 138
[2021-10-24] VITALS (24 sets, daily range): BP systolic 99–138
[2021-10-24] MEDS ORDERED: LEVOFLOXACIN IN DEXTROSE 5 % 100 ML IV SCH (06:15)
[2021-10-24] MEDS ORDERED: NACL 0.9% 1,000 ML IV SCH ×2 (06:15)
[2021-10-24] MEDS: LACTULOSE 20 GM/30 ML UDC PO SCH ×2 (07:56→21:25)
[2021-10-24 08:00] LABS: ALBUMIN 2.9 g/dL (3.4-4.8); CALCIUM 9.7 mg/dL (8.4-11.0); CREATININE 1.76 mg/dL (0.55-1.30); POTASSIUM 3.7 mmol/L (3.5-5.1); TOTAL BILIRUBIN 2.3 mg/dL (0.0-1.0)
[2021-10-24] MEDS ORDERED: LEVOFLOXACIN IN DEXTROSE 5 % 100 ML IV ONE (08:00)
[2021-10-24] MEDS ORDERED: MAGNESIUM SULFATE 50 ML IV PRN (08:45)
[2021-10-24] MEDS ORDERED: ENALAPRIL MALEATE Non-Formular 5 MG TABLET PO SCH (08:45)
[2021-10-24] MEDS ORDERED: POTASSIUM CHLORIDE 40 MEQ, LIDOCAINE JECT 2% PF 100 MG 50 MG in NS 250 ML IV PRN (08:45)
[2021-10-24] MEDS: FUROSEMIDE 40 MG TABLET PO SCH ×2 (09:00→09:59)
[2021-10-24] MEDS: BETHANECHOL CHLORIDE 25 MG TABLET (URECHOLINE) PO SCH ×4 (09:00→21:24)
[2021-10-24] MEDS: DOCUSATE SODIUM 100 MG CAPSULE PO SCH ×3 (09:00→21:24)
[2021-10-24] MEDS ORDERED: cefTRIAXone 1 GM IVPB PREMIX 50 ML IV ONE (09:00)
[2021-10-24] MEDS: RIFAXIMIN 550 MG TABLET PO SCH ×3 (09:00→21:24)
[2021-10-24] MEDS: FERROUS SULFATE 300 MG/5 ML UDC PO SCH ×4 (09:00→21:24)
[2021-10-24] MEDS: CHOLECALCIFEROL (VITAMIN D3) 2,000 UNIT TABLET PO SCH ×2 (09:00→10:00)
[2021-10-24] MEDS ORDERED: AZITHROMYCIN 250 MG TABLET PO ONE (09:00)
[2021-10-24] MEDS: FOLIC ACID 1 MG TABLET PO SCH ×2 (09:00→10:01)
[2021-10-24] MEDS: SPIRONOLACTONE 50 MG TABLET (ALDACTONE) PO SCH ×2 (09:00→09:59)
[2021-10-24] MEDS: PANTOPRAZOLE SODIUM 40 MG TAB PO SCH ×3 (09:00→21:24)
[2021-10-24 09:59] LABS: FREE T4 (FREE THYROXINE) 0.9 ng/dl (0.8-1.5); THYROID STIMULATING HORMONE 1.57 uIu/mL (0.36-3.74)
[2021-10-24] MEDS: NACL 0.9% 1,000 ML IV SCH ×2 (11:22→17:26)
[2021-10-24 16:19] LABS: BASOPHILS % (AUTO) 0.3 % (0.0-2.0); EOSINOPHILS % (AUTO) 0.6 % (0.0-4.0); HEMATOCRIT 30.3 % (36-54); HEMOGLOBIN 10.8 g/dL (14.0-18.0); LYMPHOCYTES # (AUTO) 0.8 K/uL (1.0-5.5); LYMPHOCYTES % (AUTO) 9.8 % (20.5-51.5); MEAN CORPUSCULAR HEMOGLOBIN 34 pg (27-31); MEAN CORPUSCULAR HGB CONC 35 % (32-36); MEAN CORPUSCULAR VOLUME 95 fL (79.0-98.0); MONOCYTES % (AUTO) 12.5 % (1.7-9.3); NEUTROPHILS % (AUTO) 76.8 % (40.0-70.0); PLATELET COUNT (AUTO) 59 K/uL (130-430); RED CELL DISTRIBUTION WIDTH 15.4 % (9.0-15.0); WHITE BLOOD COUNT (AUTO) 7.8 K/uL (4.8-10.8)
[2021-10-24 19:30] LABS: BILIRUBIN,URINE NEGATIVE (NEGATIVE); CLARITY/URINE CLOUDY (CLEAR); COLOR,URINE YELLOW (YELLOW); GLUCOSE,URINE NEGATIVE (NEGATIVE); KETONES,URINE NEGATIVE (NEGATIVE); LEUKOCYTE ESTERASE ,URINE 3+ (NEGATIVE); NITRITE, URINE NEGATIVE (NEGATIVE); PROTEIN URINE NEGATIVE (NEGATIVE); UROBILINOGEN,URINE 0.2 (0.2-1.0)
[2021-10-24 19:36] LABS: BLOOD, URINE TRACE (NEGATIVE)
[2021-10-24 19:41] LABS: BACTERIA,URINE None Seen /HPF (None Seen); MUCUS,URINE None Seen /LPF (None Seen); WBC,URINE 20-50 /HPF (0-3); YEAST,URINE Many /HPF (None Seen)
[2021-10-24 19:55] LABS: BARBITURATE, URINE NEGATIVE (NEG <=200); BENZODIAZEPINE, URINE POSITIVE (NEG <=150); CANNABINOID, URINE POSITIVE (NEG <=50); COCAINE, URINE NEGATIVE (NEG <=150); METHAMPHETAMINES SCREEN,URINE NEGATIVE (NEG <=500); OPIATE, URINE NEGATIVE (NEG <=100); PHENCYCLIDINE SCREEN,URINE NEGATIVE (NEG <=25); UR TRICYCLIC ANTIDEPRESSANTS NEGATIVE (NEG <=300); URINE AMPHETAMINE NEGATIVE (NEG <=500); URINE METHADONE NEGATIVE (NEG <=200); URINE OXYCODONE SCREEN NEGATIVE (NEG <=100); URINE PROPOXYPHENE SCREEN NEGATIVE (NEG <=300)
[2021-10-24] MEDS: INSULIN GLARGINE 100 UNITS/ML 10 ML VIAL SUBCUT SCH (22:47)
[2021-10-25] VITALS (10 sets, daily range): BP systolic 108–135
[2021-10-25] MEDS: NACL 0.9% 1,000 ML IV SCH ×3 (00:40→12:45)
[2021-10-25 06:43] LABS: BASOPHILS % (AUTO) 0.3 % (0.0-2.0); EOSINOPHILS # (AUTO) 0.1 K/uL (0.0-0.4); EOSINOPHILS % (AUTO) 2.5 % (0.0-4.0); HEMATOCRIT 28.4 % (36-54); HEMOGLOBIN 10.1 g/dL (14.0-18.0); LYMPHOCYTES # (AUTO) 0.6 K/uL (1.0-5.5); LYMPHOCYTES % (AUTO) 14.6 % (20.5-51.5); MEAN CORPUSCULAR HEMOGLOBIN 33 pg (27-31); MEAN CORPUSCULAR HGB CONC 36 % (32-36); MEAN CORPUSCULAR VOLUME 94 fL (79.0-98.0); MONOCYTES # (AUTO) 0.4 K/uL (0.0-1.0); MONOCYTES % (AUTO) 9.3 % (1.7-9.3); RED BLOOD CELL COUNT(AUTO) 3.03 MIL/uL (4.2-6.2); RED CELL DISTRIBUTION WIDTH 15.4 % (9.0-15.0); WHITE BLOOD COUNT (AUTO) 4.1 K/uL (4.8-10.8)
[2021-10-25 07:38] LABS: ALBUMIN 2.5 g/dL (3.4-4.8); CALCIUM 8.4 mg/dL (8.4-11.0); PHOSPHORUS 2.8 mg/dL (2.7-4.5); TOTAL BILIRUBIN 1.3 mg/dL (0.0-1.0)
[2021-10-25] MEDS: INSULIN LISPRO SLIDING SCALE 100 UNITS/ML VIAL (humaLOG) SUBCUT PRN ×4 (07:43→21:29)
[2021-10-25] MEDS: INSULIN Lispro 100 UNITS/ML VIAL (humaLOG) SUBCUT SCH ×3 (07:43→16:04)
[2021-10-25] MEDS: LEVOFLOXACIN 250 MG/D5W 50 ML IV SCH (08:45)
[2021-10-25 08:47] LABS: PLATELET COUNT (AUTO) 40 K/uL (130-430)
[2021-10-25] MEDS: FERROUS SULFATE 300 MG/5 ML UDC PO SCH ×3 (08:47→21:24)
[2021-10-25] MEDS: LACTULOSE 20 GM/30 ML UDC PO SCH ×2 (08:47→21:24)
[2021-10-25] MEDS: lisinopriL 20 MG TABLET PO SCH (08:50)
[2021-10-25] MEDS: BETHANECHOL CHLORIDE 25 MG TABLET (URECHOLINE) PO SCH ×3 (08:50→21:24)
[2021-10-25] MEDS: CHOLECALCIFEROL (VITAMIN D3) 2,000 UNIT TABLET PO SCH (08:50)
[2021-10-25] MEDS: DOCUSATE SODIUM 100 MG CAPSULE PO SCH ×2 (08:51→21:24)
[2021-10-25] MEDS: FUROSEMIDE 40 MG TABLET PO SCH (08:51)
[2021-10-25] MEDS: PANTOPRAZOLE SODIUM 40 MG TAB PO SCH ×2 (08:51→21:24)
[2021-10-25] MEDS: FOLIC ACID 1 MG TABLET PO SCH (08:51)
[2021-10-25] MEDS: SPIRONOLACTONE 50 MG TABLET (ALDACTONE) PO SCH (08:53)
[2021-10-25] MEDS: INSULIN GLARGINE 100 UNITS/ML 10 ML VIAL SUBCUT SCH ×2 (09:00→21:32)
[2021-10-25] MEDS ORDERED: cefTRIAXone 1 GM IVPB PREMIX 50 ML IV SCH (09:00)
[2021-10-25] MEDS ORDERED: AZITHROMYCIN 250 MG TABLET PO SCH (09:00)
[2021-10-25 09:09] LABS: CREATININE 0.86 mg/dL (0.55-1.30); POTASSIUM 2.8 mmol/L (3.5-5.1)
[2021-10-25 15:40] LABS: NEUTROPHILS % (AUTO) 73.3 % (40.0-70.0)
[2021-10-26 00:06] VITALS: BP_SYST 109
[2021-10-26] MEDS: INSULIN LISPRO SLIDING SCALE 100 UNITS/ML VIAL (humaLOG) SUBCUT PRN ×3 (06:28→17:54)
[2021-10-26] MEDS: INSULIN Lispro 100 UNITS/ML VIAL (humaLOG) SUBCUT SCH ×3 (06:33→17:55)
[2021-10-26 08:00] VITALS: BP_SYST 92
[2021-10-26 08:07] LABS: BASOPHILS % (AUTO) 0.1 % (0.0-2.0); EOSINOPHILS % (AUTO) 1.8 % (0.0-4.0); HEMATOCRIT 27.9 % (36-54); HEMOGLOBIN 9.9 g/dL (14.0-18.0); LYMPHOCYTES # (AUTO) 0.4 K/uL (1.0-5.5); MEAN CORPUSCULAR HEMOGLOBIN 33 pg (27-31); MEAN CORPUSCULAR HGB CONC 36 % (32-36); MEAN CORPUSCULAR VOLUME 94 fL (79.0-98.0); MONOCYTES # (AUTO) 0.2 K/uL (0.0-1.0); MONOCYTES % (AUTO) 6.4 % (1.7-9.3); NEUTROPHILS % (AUTO) 77.7 % (40.0-70.0); RED BLOOD CELL COUNT(AUTO) 2.97 MIL/uL (4.2-6.2); RED CELL DISTRIBUTION WIDTH 15.3 % (9.0-15.0); WHITE BLOOD COUNT (AUTO) 2.6 K/uL (4.8-10.8)
[2021-10-26 08:26] LABS: PLATELET COUNT (AUTO) 27 K/uL (130-430)
[2021-10-26] MEDS: NACL 0.9% 1,000 ML IV SCH ×3 (09:00→21:52)
[2021-10-26] MEDS: SPIRONOLACTONE 50 MG TABLET (ALDACTONE) PO SCH (09:00)
[2021-10-26] MEDS: lisinopriL 20 MG TABLET PO SCH (09:00)
[2021-10-26] MEDS: FUROSEMIDE 40 MG TABLET PO SCH (09:00)
[2021-10-26 09:17] LABS: ALBUMIN 2.4 g/dL (3.4-4.8); CALCIUM 8.4 mg/dL (8.4-11.0); CREATININE 0.84 mg/dL (0.55-1.30); PHOSPHORUS 2.1 mg/dL (2.7-4.5); POTASSIUM 3.3 mmol/L (3.5-5.1)
[2021-10-26] MEDS: LEVOFLOXACIN 250 MG/D5W 50 ML IV SCH (09:57)
[2021-10-26] MEDS: FERROUS SULFATE 300 MG/5 ML UDC PO SCH ×3 (10:05→21:35)
[2021-10-26] MEDS: LACTULOSE 20 GM/30 ML UDC PO SCH ×3 (10:05→21:36)
[2021-10-26] MEDS: CHOLECALCIFEROL (VITAMIN D3) 2,000 UNIT TABLET PO SCH (10:07)
[2021-10-26] MEDS: BETHANECHOL CHLORIDE 25 MG TABLET (URECHOLINE) PO SCH ×3 (10:08→21:36)
[2021-10-26] MEDS: DOCUSATE SODIUM 100 MG CAPSULE PO SCH ×2 (10:08→21:35)
[2021-10-26] MEDS: PANTOPRAZOLE SODIUM 40 MG TAB PO SCH ×2 (10:09→21:35)
[2021-10-26] MEDS: FOLIC ACID 1 MG TABLET PO SCH (10:09)
[2021-10-26] MEDS: INSULIN GLARGINE 100 UNITS/ML 10 ML VIAL SUBCUT SCH ×2 (10:21→21:00)
[2021-10-26 11:34] VITALS: BP_SYST 130
[2021-10-26 15:15] VITALS: BP_SYST 102
[2021-10-26 20:00] VITALS: BP_SYST 119
[2021-10-26] MEDS ORDERED: ZOLPIDEM TARTRATE 5 MG TABLET PO PRN (22:15)
[2021-10-26] MEDS ORDERED: INSULIN GLARGINE 100 UNITS/ML 10 ML VIAL SUBCUT ONE (22:30)
[2021-10-27] VITALS: BP_SYST 121
[2021-10-27] MEDS: NACL 0.9% 1,000 ML IV SCH (05:56)
[2021-10-27 08:00] VITALS: BP_SYST 103
[2021-10-27] MEDS: INSULIN Lispro 100 UNITS/ML VIAL (humaLOG) SUBCUT SCH ×3 (08:14→16:54)
[2021-10-27] MEDS: CHOLECALCIFEROL (VITAMIN D3) 2,000 UNIT TABLET PO SCH (08:18)
[2021-10-27] MEDS: FOLIC ACID 1 MG TABLET PO SCH (08:20)
[2021-10-27] MEDS: BETHANECHOL CHLORIDE 25 MG TABLET (URECHOLINE) PO SCH ×3 (08:20→22:08)
[2021-10-27] MEDS: PANTOPRAZOLE SODIUM 40 MG TAB PO SCH ×2 (08:21→22:07)
[2021-10-27] MEDS: DOCUSATE SODIUM 100 MG CAPSULE PO SCH ×2 (08:22→21:00)
[2021-10-27] MEDS: FUROSEMIDE 40 MG TABLET PO SCH (08:23)
[2021-10-27] MEDS: LACTULOSE 20 GM/30 ML UDC PO SCH ×3 (08:23→22:08)
[2021-10-27] MEDS: FERROUS SULFATE 300 MG/5 ML UDC PO SCH ×3 (08:23→22:09)
[2021-10-27] MEDS: SPIRONOLACTONE 50 MG TABLET (ALDACTONE) PO SCH (08:24)
[2021-10-27 08:26] LABS: BASOPHILS % (AUTO) 0.3 % (0.0-2.0); EOSINOPHILS # (AUTO) 0.1 K/uL (0.0-0.4); EOSINOPHILS % (AUTO) 5.3 % (0.0-4.0); HEMOGLOBIN 9.1 g/dL (14.0-18.0); LYMPHOCYTES # (AUTO) 0.4 K/uL (1.0-5.5); LYMPHOCYTES % (AUTO) 19.6 % (20.5-51.5); MEAN CORPUSCULAR HEMOGLOBIN 33 pg (27-31); MEAN CORPUSCULAR HGB CONC 35 % (32-36); MEAN CORPUSCULAR VOLUME 94 fL (79.0-98.0); MONOCYTES # (AUTO) 0.2 K/uL (0.0-1.0); MONOCYTES % (AUTO) 8.7 % (1.7-9.3); NEUTROPHILS # (AUTO) 1.4 K/uL (1.8-7.7); RED BLOOD CELL COUNT(AUTO) 2.75 MIL/uL (4.2-6.2); RED CELL DISTRIBUTION WIDTH 15.1 % (9.0-15.0); WHITE BLOOD COUNT (AUTO) 2.2 K/uL (4.8-10.8)
[2021-10-27] MEDS: INSULIN GLARGINE 100 UNITS/ML 10 ML VIAL SUBCUT SCH ×2 (08:26→22:21)
[2021-10-27] MEDS: LEVOFLOXACIN 250 MG/D5W 50 ML IV SCH (08:28)
[2021-10-27] MEDS ORDERED: FLUCONAZOLE 200 MG TABLET (DIFLUCAN) PO ONE (08:30)
[2021-10-27 08:53] LABS: ALBUMIN 2.2 g/dL (3.4-4.8); CALCIUM 7.2 mg/dL (8.4-11.0); CREATININE 0.69 mg/dL (0.55-1.30); PHOSPHORUS 2.4 mg/dL (2.7-4.5); TOTAL BILIRUBIN 1.7 mg/dL (0.0-1.0)
[2021-10-27 08:58] LABS: POTASSIUM 2.8 mmol/L (3.5-5.1)
[2021-10-27] MEDS ORDERED: POTASSIUM CHLORIDE 20 MEQ TAB.PRT.SR PO ONE (09:45)
[2021-10-27 10:14] LABS: PLATELET COUNT (AUTO) 28 K/uL (130-430)
[2021-10-27 10:38] LABS: TOTAL IRON BIND. CAPACITY 131 ug/dL (250-450)
[2021-10-27 11:46] LABS: RETICULOCYTE COUNT 2.6 % (0.5-1.5)
[2021-10-27 11:50] LABS: NEUTROPHILS % (AUTO) 66.1 % (40.0-70.0)
[2021-10-27] MEDS: INSULIN LISPRO SLIDING SCALE 100 UNITS/ML VIAL (humaLOG) SUBCUT PRN ×2 (11:51→16:55)
[2021-10-27 12:00] VITALS: BP_SYST 120
[2021-10-27] MEDS: lisinopriL 20 MG TABLET PO SCH (14:44)
[2021-10-27 16:00] VITALS: BP_SYST 119
[2021-10-27 20:15] VITALS: BP_SYST 127
[2021-10-28] MEDS: NACL 0.9% 1,000 ML IV SCH (02:25)
[2021-10-28 06:06] LABS: FOLATE (FOLIC ACID) 13.6 ng/mL (>3.0)
[2021-10-28] MEDS: INSULIN Lispro 100 UNITS/ML VIAL (humaLOG) SUBCUT SCH (07:55)
[2021-10-28] MEDS: INSULIN LISPRO SLIDING SCALE 100 UNITS/ML VIAL (humaLOG) SUBCUT PRN ×2 (07:56→11:47)
[2021-10-28 08:00] VITALS: BP_SYST 114
[2021-10-28] MEDS: CHOLECALCIFEROL (VITAMIN D3) 2,000 UNIT TABLET PO SCH (08:13)
[2021-10-28] MEDS: lisinopriL 20 MG TABLET PO SCH (08:13)
[2021-10-28] MEDS: SPIRONOLACTONE 50 MG TABLET (ALDACTONE) PO SCH (08:14)
[2021-10-28] MEDS: FUROSEMIDE 40 MG TABLET PO SCH (08:14)
[2021-10-28] MEDS: BETHANECHOL CHLORIDE 25 MG TABLET (URECHOLINE) PO SCH (08:15)
[2021-10-28] MEDS: FOLIC ACID 1 MG TABLET PO SCH (08:15)
[2021-10-28] MEDS: PANTOPRAZOLE SODIUM 40 MG TAB PO SCH (08:16)
[2021-10-28] MEDS: FERROUS SULFATE 300 MG/5 ML UDC PO SCH (08:16)
[2021-10-28] MEDS: DOCUSATE SODIUM 100 MG CAPSULE PO SCH (08:16)
[2021-10-28] MEDS: LACTULOSE 20 GM/30 ML UDC PO SCH (08:16)
[2021-10-28] MEDS: INSULIN GLARGINE 100 UNITS/ML 10 ML VIAL SUBCUT SCH (08:17)
[2021-10-28] MEDS: LEVOFLOXACIN 250 MG/D5W 50 ML IV SCH (08:20)
[2021-10-28] MEDS ORDERED: MAGNESIUM OXIDE 400 MG TABLET PO ONE (08:45)
[2021-10-28 09:09] LABS: BASOPHILS % (AUTO) 0.2 % (0.0-2.0); EOSINOPHILS # (AUTO) 0.1 K/uL (0.0-0.4); EOSINOPHILS % (AUTO) 4.1 % (0.0-4.0); HEMATOCRIT 31.7 % (36-54); HEMOGLOBIN 11.1 g/dL (14.0-18.0); LYMPHOCYTES # (AUTO) 0.5 K/uL (1.0-5.5); LYMPHOCYTES % (AUTO) 16.4 % (20.5-51.5); MEAN CORPUSCULAR HEMOGLOBIN 34 pg (27-31); MEAN CORPUSCULAR HGB CONC 35 % (32-36); MEAN CORPUSCULAR VOLUME 96 fL (79.0-98.0); MONOCYTES # (AUTO) 0.2 K/uL (0.0-1.0); MONOCYTES % (AUTO) 8.2 % (1.7-9.3); NEUTROPHILS # (AUTO) 2.2 K/uL (1.8-7.7); NEUTROPHILS % (AUTO) 71.1 % (40.0-70.0); RED BLOOD CELL COUNT(AUTO) 3.31 MIL/uL (4.2-6.2); RED CELL DISTRIBUTION WIDTH 15.6 % (9.0-15.0)
[2021-10-28 09:15] LABS: PLATELET COUNT (AUTO) 35 K/uL (130-430)
[2021-10-28 09:57] LABS: ALBUMIN 2.6 g/dL (3.4-4.8); CALCIUM 8.2 mg/dL (8.4-11.0); CREATININE 0.78 mg/dL (0.55-1.30); PHOSPHORUS 1.6 mg/dL (2.7-4.5); POTASSIUM 3.4 mmol/L (3.5-5.1); TOTAL BILIRUBIN 1.8 mg/dL (0.0-1.0)
[2021-10-28] MEDS ORDERED: INSULIN Lispro 100 UNITS/ML VIAL (humaLOG) SUBCUT SCH (11:30)
[2021-10-28 12:00] VITALS: BP_SYST 123
[2021-10-28 13:57] VITALS: BP_SYST 123
== END 2021-10-28 15:00 | disposition home health service (06) | DRG 637 ==
LOC: SED 18:54 → SIC 21:42 → STU 10-25 16:17
DX: E11.10 Type 2 diabetes mellitus with ketoacidosis without coma (principal); N17.0 Acute kidney failure with tubular necrosis; E44.0 Moderate protein-calorie malnutrition; E87.1 Hypo-osmolality and hyponatremia; I13.0 Hypertensive heart and chronic kidney disease with heart failure and stage 1 through stage 4 chronic kidney disease, or unspecified chronic kidney disease; K72.90 Hepatic failure, unspecified without coma; D69.6 Thrombocytopenia, unspecified; K59.00 Constipation, unspecified; K21.9 Gastro-esophageal reflux disease without esophagitis; G47.00 Insomnia, unspecified; K74.60 Unspecified cirrhosis of liver; E55.9 Vitamin D deficiency, unspecified; F12.90 Cannabis use, unspecified, uncomplicated; Z20.822 Contact with and (suspected) exposure to COVID-19; E87.5 Hyperkalemia; D50.9 Iron deficiency anemia, unspecified; I50.9 Heart failure, unspecified; N18.9 Chronic kidney disease, unspecified; E11.22 Type 2 diabetes mellitus with diabetic chronic kidney disease; Z79.4 Long term (current) use of insulin; Z88.5 Allergy status to narcotic agent; Z88.0 Allergy status to penicillin; Z88.2 Allergy status to sulfonamides; Z88.8 Allergy status to other drugs, medicaments and biological substances; Z79.899 Other long term (current) drug therapy; Z68.25 Body mass index [BMI] 25.0-25.9, adult
CPT/HCPCS: 36415; 36600; 70450-TC; 71045; 76376; 76700-TC; 80053; 80061; 80307; 81000; 82009; 82140; 82150; 82272; 82607; 82728; 82746; 82803-TC; 82962; 83036; 83540; 83550; 83605; 83690; 83735; 84100; 84132; 84439; 84443; 85025; 85044; 85610-TC; 85730-TC; 86140; 87040; 87081; 87086; 92610-GN; 93005; 96374; 96375; 99285; G0378; G0480; G0481; G0482; J0696; J1815; J1956; J3480; J7050; Q0144

== ENCOUNTER 2021-11-14 23:42 | Inpatient (IN) | payer OTHER, MEDICAID ==
[~2021-11-14] VITALS: Ht 162.6 cm; Wt 67.1 kg
[2021-11-14 23:42] VITALS: BP_SYST 82
[~2021-11-14 23:42] MED LIST changes: -PRO40 PO
[2021-11-15 00:36] LABS: BASOPHILS % (AUTO) 0.6 % (0.0-2.0); EOSINOPHILS # (AUTO) 0.3 K/uL (0.0-0.4); EOSINOPHILS % (AUTO) 4.7 % (0.0-4.0); HEMATOCRIT 31.1 % (36-54); HEMOGLOBIN 11.2 g/dL (14.0-18.0); LYMPHOCYTES # (AUTO) 0.7 K/uL (1.0-5.5); LYMPHOCYTES % (AUTO) 13.1 % (20.5-51.5); MEAN CORPUSCULAR HEMOGLOBIN 34 pg (27-31); MEAN CORPUSCULAR HGB CONC 36 % (32-36); MEAN CORPUSCULAR VOLUME 94 fL (79.0-98.0); MONOCYTES # (AUTO) 0.5 K/uL (0.0-1.0); NEUTROPHILS # (AUTO) 3.8 K/uL (1.8-7.7); NEUTROPHILS % (AUTO) 71.6 % (40.0-70.0); RED BLOOD CELL COUNT(AUTO) 3.32 MIL/uL (4.2-6.2); RED CELL DISTRIBUTION WIDTH 15.6 % (9.0-15.0); WHITE BLOOD COUNT (AUTO) 5.3 K/uL (4.8-10.8)
[2021-11-15 01:01] LABS: ANION GAP 8 (5-15); CALCIUM 7.9 mg/dL (8.4-11.0); CHLORIDE 99 mmol/L (98-107); GLUCOSE 131 mg/dL (70-99); POTASSIUM 4.2 mmol/L (3.5-5.1); SODIUM SERUM 131 mmol/L (136-145); UREA NITROGEN, BLOOD 10 mg/dL (8-21)
[2021-11-15 01:02] LABS: GFR AFRICAN AMERICAN 108 mL/min (>90)
[2021-11-15 01:10] LABS: ALANINE AMINOTRANSFERASE 60 U/L (12-78); ALBUMIN 2.7 g/dL (3.4-4.8); ASPARTATE AMINOTRANSFERASE 68 U/L (10-37); TOTAL BILIRUBIN 1.9 mg/dL (0.0-1.0)
[2021-11-15 01:13] LABS: ALCOHOL, BLOOD < 3 mg/dL (<10)
[2021-11-15] MEDS ORDERED: LACTULOSE 20 GM/30 ML UDC PO ONE (01:45)
[2021-11-15] MEDS ORDERED: LACTULOSE 20 GM/30 ML UDC RC ONE (01:45)
[2021-11-15] MEDS ORDERED: KCL 20 mEq in 100 mL (PREMIX) 100 ML IV ONE (01:45)
[2021-11-15 02:59] LABS: PLATELET COUNT (AUTO) 83 K/uL (130-430)
[2021-11-15] MEDS ORDERED: D5NS 1,000 ML IV SCH (03:00)
[2021-11-15 03:55] VITALS: BP_SYST 128
[2021-11-15 06:16] VITALS: BP_SYST 128
[2021-11-15 06:30] LABS: BASOPHILS % (AUTO) 0.2 % (0.0-2.0); EOSINOPHILS # (AUTO) 0.1 K/uL (0.0-0.4); EOSINOPHILS % (AUTO) 1.3 % (0.0-4.0); HEMATOCRIT 32.2 % (36-54); HEMOGLOBIN 11.7 g/dL (14.0-18.0); LYMPHOCYTES # (AUTO) 0.5 K/uL (1.0-5.5); LYMPHOCYTES % (AUTO) 13.5 % (20.5-51.5); MEAN CORPUSCULAR HEMOGLOBIN 34 pg (27-31); MEAN CORPUSCULAR HGB CONC 36 % (32-36); MEAN CORPUSCULAR VOLUME 94 fL (79.0-98.0); MONOCYTES # (AUTO) 0.3 K/uL (0.0-1.0); MONOCYTES % (AUTO) 6.7 % (1.7-9.3); NEUTROPHILS % (AUTO) 78.3 % (40.0-70.0); PLATELET COUNT (AUTO) 62 K/uL (130-430); RED BLOOD CELL COUNT(AUTO) 3.43 MIL/uL (4.2-6.2); RED CELL DISTRIBUTION WIDTH 15.3 % (9.0-15.0); WHITE BLOOD COUNT (AUTO) 3.9 K/uL (4.8-10.8)
[2021-11-15 06:34] LABS: CALCIUM 8.9 mg/dL (8.4-11.0); CREATININE 0.65 mg/dL (0.55-1.30); POTASSIUM 4.5 mmol/L (3.5-5.1)
[2021-11-15 08:00] VITALS: BP_SYST 99
[2021-11-15] MEDS ORDERED: RIFAXIMIN 550 MG TABLET PO ONE (11:00)
[2021-11-15] MEDS ORDERED: FUROSEMIDE 40 MG TABLET PO ONE (11:00)
[2021-11-15] MEDS ORDERED: SPIRONOLACTONE 50 MG TABLET (ALDACTONE) PO ONE (11:00)
[2021-11-15 12:00] VITALS: BP_SYST 97
[2021-11-15] MEDS: INSULIN REGULAR, HUMAN 100 UNITS/ML, 10 ML VIAL (humuLIN R) SUBCUT PRN ×3 (12:42→23:47)
[2021-11-15 16:00] VITALS: BP_SYST 113
[2021-11-15] MEDS: FERROUS SULFATE 325 MG TABLET.DR PO SCH ×2 (16:59→22:05)
[2021-11-15 20:00] VITALS: BP_SYST 113
[2021-11-15] MEDS ORDERED: INSULIN REGULAR, HUMAN 100 UNITS/ML, 10 ML VIAL IVP ONE (20:30)
[2021-11-15] MEDS: LACTULOSE 20 GM/30 ML UDC PO SCH (22:05)
[2021-11-15] MEDS: RIFAXIMIN 550 MG TABLET PO SCH (22:05)
[2021-11-15] MEDS: INSULIN GLARGINE 100 UNITS/ML 10 ML VIAL SUBCUT SCH (22:08)
[2021-11-16] MEDS: TEMAZEPAM 15 MG CAPSULE PO PRN ×2 (00:50→21:27)
[2021-11-16 01:26] VITALS: BP_SYST 115
[2021-11-16 06:50] LABS: BASOPHILS % (AUTO) 0.3 % (0.0-2.0); EOSINOPHILS # (AUTO) 0.2 K/uL (0.0-0.4); EOSINOPHILS % (AUTO) 3.8 % (0.0-4.0); HEMATOCRIT 27.9 % (36-54); LYMPHOCYTES # (AUTO) 1.3 K/uL (1.0-5.5); LYMPHOCYTES % (AUTO) 23.9 % (20.5-51.5); MEAN CORPUSCULAR HEMOGLOBIN 34 pg (27-31); MEAN CORPUSCULAR HGB CONC 36 % (32-36); MEAN CORPUSCULAR VOLUME 94 fL (79.0-98.0); MONOCYTES # (AUTO) 0.6 K/uL (0.0-1.0); MONOCYTES % (AUTO) 11.3 % (1.7-9.3); NEUTROPHILS # (AUTO) 3.4 K/uL (1.8-7.7); NEUTROPHILS % (AUTO) 60.7 % (40.0-70.0); PLATELET COUNT (AUTO) 67 K/uL (130-430); RED BLOOD CELL COUNT(AUTO) 2.97 MIL/uL (4.2-6.2); RED CELL DISTRIBUTION WIDTH 15.2 % (9.0-15.0); WHITE BLOOD COUNT (AUTO) 5.6 K/uL (4.8-10.8)
[2021-11-16] MEDS: HYDROcodone/ACETAMIN 5-325 MG TAB (NORCO/ VICODIN) PO PRN ×3 (07:14→21:22)
[2021-11-16 07:17] LABS: ALBUMIN 2.3 g/dL (3.4-4.8); CALCIUM 7.6 mg/dL (8.4-11.0); CREATININE 0.92 mg/dL (0.55-1.30); TOTAL BILIRUBIN 1.5 mg/dL (0.0-1.0)
[2021-11-16 08:00] VITALS: BP_SYST 129
[2021-11-16] MEDS ORDERED: SPIRONOLACTONE 50 MG TABLET (ALDACTONE) PO SCH (09:00)
[2021-11-16] MEDS: LACTULOSE 20 GM/30 ML UDC PO SCH ×2 (09:48→21:21)
[2021-11-16] MEDS: FUROSEMIDE 40 MG TABLET PO SCH (09:49)
[2021-11-16] MEDS: CHOLECALCIFEROL (VITAMIN D3) 2,000 UNIT TABLET PO SCH (09:50)
[2021-11-16] MEDS: FOLIC ACID 1 MG TABLET PO SCH (09:50)
[2021-11-16] MEDS: RIFAXIMIN 550 MG TABLET PO SCH ×2 (09:50→21:21)
[2021-11-16] MEDS: FERROUS SULFATE 325 MG TABLET.DR PO SCH ×3 (09:51→21:21)
[2021-11-16 12:03] VITALS: BP_SYST 111
[2021-11-16] MEDS: INSULIN REGULAR, HUMAN 100 UNITS/ML, 10 ML VIAL (humuLIN R) SUBCUT PRN ×2 (13:02→15:41)
[2021-11-16] MEDS ORDERED: ONDANSETRON HCL 4 MG/2 ML VIAL IVP PRN (13:30)
[2021-11-16] MEDS ORDERED: INSULIN REGULAR, HUMAN 100 UNITS/ML, 10 ML VIAL SQ ONE (16:00)
[2021-11-16 16:15] VITALS: BP_SYST 114
[2021-11-16] MEDS ORDERED: INSULIN REGULAR, HUMAN 100 UNITS/ML, 10 ML VIAL IVP ONE (16:30)
[2021-11-16 20:00] VITALS: BP_SYST 156
[2021-11-16] MEDS ORDERED: GLUCOSE (DEXTROSE) ORAL GEL -Adults PO PRN (20:00)
[2021-11-16] MEDS ORDERED: D5W 1,000 ML IV PRN (20:00)
[2021-11-16] MEDS ORDERED: DEXTROSE 50% JECT 50 ML DISP.SYRIN IVP PRN (20:00)
[2021-11-16] MEDS: INSULIN GLARGINE 100 UNITS/ML 10 ML VIAL SUBCUT SCH (21:00)
[2021-11-17] MEDS ORDERED: D5NS 500 ML IV ONE
[2021-11-17 04:00] VITALS: BP_SYST 110
[2021-11-17] MEDS: INSULIN REGULAR, HUMAN 100 UNITS/ML, 10 ML VIAL (humuLIN R) SUBCUT PRN ×3 (06:28→17:19)
[2021-11-17 06:55] LABS: INR 1.3 (0.80-1.20); PROTHROMBIN TIME 12.5 SECS (9.5-12.5)
[2021-11-17] MEDS ORDERED: SIMETHICONE 40 MG/0.6 ML ML ONE (07:30)
[2021-11-17] MEDS ORDERED: MEPERIDINE 100 MG INJ. 100 MG/ML VIAL ONE (07:31)
[2021-11-17] MEDS ORDERED: MIDAZOLAM HCL 5 MG/5 ML VIAL ONE (07:31)
[2021-11-17] MEDS ORDERED: fentaNYL CITRATE/PF 100 MCG/2 ML AMP ONE (07:35)
[2021-11-17 09:58] VITALS: BP_SYST 124
[2021-11-17] MEDS: FERROUS SULFATE 325 MG TABLET.DR PO SCH ×3 (10:04→21:00)
[2021-11-17] MEDS: LACTULOSE 20 GM/30 ML UDC PO SCH ×2 (10:04→21:00)
[2021-11-17] MEDS: FOLIC ACID 1 MG TABLET PO SCH (10:04)
[2021-11-17] MEDS: PANTOPRAZOLE SODIUM 40 MG TAB PO SCH (10:05)
[2021-11-17] MEDS: FUROSEMIDE 40 MG TABLET PO SCH (10:05)
[2021-11-17] MEDS: RIFAXIMIN 550 MG TABLET PO SCH ×2 (10:06→21:00)
[2021-11-17] MEDS: CHOLECALCIFEROL (VITAMIN D3) 2,000 UNIT TABLET PO SCH (10:08)
[2021-11-17 11:49] LABS: HEMATOCRIT 25.8 % (36-54); HEMOGLOBIN 9.3 g/dL (14.0-18.0); MEAN CORPUSCULAR HEMOGLOBIN 34 pg (27-31); MEAN CORPUSCULAR HGB CONC 36 % (32-36); MEAN CORPUSCULAR VOLUME 94 fL (79.0-98.0); RED BLOOD CELL COUNT(AUTO) 2.74 MIL/uL (4.2-6.2); RED CELL DISTRIBUTION WIDTH 15.4 % (9.0-15.0)
[2021-11-17 12:06] LABS: WHITE BLOOD COUNT (AUTO) 1.8 K/uL (4.8-10.8)
[2021-11-17 12:07] LABS: PLATELET COUNT (AUTO) 34 K/uL (130-430)
[2021-11-17 13:40] VITALS: BP_SYST 127
[2021-11-17 15:43] LABS: BAND % (MANUAL) 0 % (0-6); BASOPHILS % (MANUAL) 0 % (0-2); EOSINOPHILS % (MANUAL) 2 % (0-7); LYMPHOCYTES % (MANUAL) 24 % (20-46); MONOCYTES % (MANUAL) 8 % (0-11)
[2021-11-17] MEDS ORDERED: THIAMINE HCL 100 MG TABLET PO ONE (16:00)
[2021-11-17 17:21] VITALS: BP_SYST 149
[2021-11-17] MEDS: HYDROcodone/ACETAMIN 5-325 MG TAB (NORCO/ VICODIN) PO PRN (21:03)
[2021-11-17] MEDS: INSULIN GLARGINE 100 UNITS/ML 10 ML VIAL SUBCUT SCH (21:10)
[2021-11-18] MEDS: TEMAZEPAM 15 MG CAPSULE PO PRN (00:27)
[2021-11-18 07:50] LABS: BASOPHILS % (AUTO) 0.4 % (0.0-2.0); EOSINOPHILS # (AUTO) 0.1 K/uL (0.0-0.4); EOSINOPHILS % (AUTO) 6.4 % (0.0-4.0); HEMATOCRIT 27.3 % (36-54); HEMOGLOBIN 9.8 g/dL (14.0-18.0); LYMPHOCYTES # (AUTO) 0.5 K/uL (1.0-5.5); LYMPHOCYTES % (AUTO) 23.6 % (20.5-51.5); MEAN CORPUSCULAR HEMOGLOBIN 34 pg (27-31); MEAN CORPUSCULAR HGB CONC 36 % (32-36); MEAN CORPUSCULAR VOLUME 94 fL (79.0-98.0); MONOCYTES # (AUTO) 0.3 K/uL (0.0-1.0); MONOCYTES % (AUTO) 12.4 % (1.7-9.3); NEUTROPHILS # (AUTO) 1.3 K/uL (1.8-7.7); RED BLOOD CELL COUNT(AUTO) 2.91 MIL/uL (4.2-6.2); RED CELL DISTRIBUTION WIDTH 15.2 % (9.0-15.0); WHITE BLOOD COUNT (AUTO) 2.3 K/uL (4.8-10.8)
[2021-11-18 08:08] VITALS: BP_SYST 153
[2021-11-18] MEDS: LACTULOSE 20 GM/30 ML UDC PO SCH ×2 (08:57→20:43)
[2021-11-18] MEDS: FOLIC ACID 1 MG TABLET PO SCH (08:57)
[2021-11-18] MEDS: HYDROcodone/ACETAMIN 5-325 MG TAB (NORCO/ VICODIN) PO PRN ×2 (08:58→18:42)
[2021-11-18] MEDS: PANTOPRAZOLE SODIUM 40 MG TAB PO SCH (08:59)
[2021-11-18] MEDS: FERROUS SULFATE 325 MG TABLET.DR PO SCH ×3 (08:59→20:43)
[2021-11-18] MEDS: CHOLECALCIFEROL (VITAMIN D3) 2,000 UNIT TABLET PO SCH (08:59)
[2021-11-18] MEDS ORDERED: THIAMINE HCL 100 MG TABLET PO SCH (09:00)
[2021-11-18] MEDS: FUROSEMIDE 40 MG TABLET PO SCH (09:01)
[2021-11-18] MEDS: RIFAXIMIN 550 MG TABLET PO SCH ×2 (09:01→20:43)
[2021-11-18] MEDS: INSULIN REGULAR, HUMAN 100 UNITS/ML, 10 ML VIAL (humuLIN R) SUBCUT PRN ×2 (09:05→12:09)
[2021-11-18 10:55] LABS: PLATELET COUNT (AUTO) 36 K/uL (130-430)
[2021-11-18 10:56] LABS: NEUTROPHILS % (AUTO) 57.2 % (40.0-70.0)
[2021-11-18 12:36] VITALS: BP_SYST 121
[2021-11-18 14:11] VITALS: BP_SYST 124
[2021-11-18 16:38] VITALS: BP_SYST 129
[2021-11-18 20:15] VITALS: BP_SYST 133
[2021-11-18] MEDS: INSULIN GLARGINE 100 UNITS/ML 10 ML VIAL SUBCUT SCH (20:47)
== END 2021-11-18 22:22 | DRG 441 ==
LOC: SED 23:42 → STU 11-15 01:41
PROVIDERS: ADMIT General Practice; ATTEND General Practice
PROC: 0DB68ZX Excision of Stomach, Via Natural or Artificial Opening Endoscopic, Diagnostic (ICD-10-PCS; principal; 2021-11-17 07:30)
DX: K72.90 Hepatic failure, unspecified without coma (principal); G93.41 Metabolic encephalopathy; E44.0 Moderate protein-calorie malnutrition; E87.1 Hypo-osmolality and hyponatremia; C22.9 Malignant neoplasm of liver, not specified as primary or secondary; E11.649 Type 2 diabetes mellitus with hypoglycemia without coma; K29.70 Gastritis, unspecified, without bleeding; K74.60 Unspecified cirrhosis of liver; D50.9 Iron deficiency anemia, unspecified; D64.9 Anemia, unspecified; D69.6 Thrombocytopenia, unspecified; Z20.822 Contact with and (suspected) exposure to COVID-19; E87.8 Other disorders of electrolyte and fluid balance, not elsewhere classified; R74.01 Elevation of levels of liver transaminase levels; E83.51 Hypocalcemia; I11.0 Hypertensive heart disease with heart failure; I50.9 Heart failure, unspecified; Z85.05 Personal history of malignant neoplasm of liver; Z88.5 Allergy status to narcotic agent; Z88.0 Allergy status to penicillin; Z88.2 Allergy status to sulfonamides; Z88.8 Allergy status to other drugs, medicaments and biological substances; Z79.899 Other long term (current) drug therapy; Z79.2 Long term (current) use of antibiotics
CPT/HCPCS: 36415; 43239; 70450-TC; 71045; 76376; 76700-TC; 80048; 80053; 82140; 82962; 83036; 83735; 84484; 85007; 85025; 85027; 85610-TC; 87081; 88305; 88312; 88313; 93005; 99291; 99292; G0378; G0482; J1815; J2175; J2250; J2405; J3010

== ENCOUNTER 2021-12-31 23:40 | Inpatient (IN) | payer OTHER, MEDICAID ==
[~2021-12-31] VITALS: Ht 162.6 cm; Wt 63.5 kg
[~2021-12-31 23:40] MED LIST changes: -CEPH-568 PO; -FURO-150 PO; -LEVO500T90 PO; -SPIR50TA5 PO
--- NOTE | 2021-12-31 23:45 | NUR ---
PT [facility]. REPORT FROM KATE FLORES. PT BG 41 AFTER GLUCOGON IN THE FIELD/ MEDIC.LEFT EJ ER KATE FLORES AND D5O 25GRAMS GVEN IVP. ER MADE AWARE AND VERBAL ORDERS RECIEVED. PT A/O X4 AFTER D50 GIVEN. SLOW VERBAL ESPOSE. WILL AWAKEN PER TOUCH AND VOICE. CONITINUED MONITORING
[2021-12-31] MEDS ORDERED: DEXTROSE 50% JECT 50 ML DISP.SYRIN ONE (23:53)
[2021-12-31 23:54] VITALS: BP_SYST 156
[2022-01-01] MEDS ORDERED: NACL 0.9% 1,000 ML IV ONE
--- NOTE | 2022-01-01 00:34 | NUR ---
PT AWAKENS BY VOICE AND TOUCH. A/O X4 SLOW, QUIET VOICE. VSS BG-149 CONTINUED MONITORING
[2022-01-01 00:39] LABS: CALCIUM 8.2 mg/dL (8.4-11.0); CREATININE 0.95 mg/dL (0.55-1.30); POTASSIUM 3.6 mmol/L (3.5-5.1)
[2022-01-01 00:45] LABS: ALBUMIN 2.8 g/dL (3.4-4.8); EOSINOPHILS # (AUTO) 0.1 K/uL (0.0-0.4); HEMOGLOBIN 14.3 g/dL (14.0-18.0); LYMPHOCYTES # (AUTO) 0.4 K/uL (1.0-5.5); LYMPHOCYTES % (AUTO) 5.8 % (20.5-51.5); MEAN CORPUSCULAR HEMOGLOBIN 34 pg (27-31); MEAN CORPUSCULAR HGB CONC 37 % (32-36); MEAN CORPUSCULAR VOLUME 92 fL (79.0-98.0); MONOCYTES # (AUTO) 0.6 K/uL (0.0-1.0); MONOCYTES % (AUTO) 8.6 % (1.7-9.3); NEUTROPHILS # (AUTO) 5.9 K/uL (1.8-7.7); NEUTROPHILS % (AUTO) 84.6 % (40.0-70.0); PLATELET COUNT (AUTO) 67 K/uL (130-430); RED BLOOD CELL COUNT(AUTO) 4.26 MIL/uL (4.2-6.2); RED CELL DISTRIBUTION WIDTH 14.4 % (9.0-15.0); TOTAL BILIRUBIN 2.9 mg/dL (0.0-1.0); WHITE BLOOD COUNT (AUTO) 6.9 K/uL (4.8-10.8)
--- NOTE | 2022-01-01 01:37 | NUR ---
PT AWAKENS BY TOUCH. NODS HEAD FOR ANSWERING BRAYAN. VSS CONTINUED MONITORING
[2022-01-01] MEDS ORDERED: LACTULOSE 20 GM/30 ML UDC PO ONE (04:00)
--- NOTE | 2022-01-01 04:54 | NUR ---
LYNDA SWABBED AND SENT TO LAB.
[2022-01-01] MEDS ORDERED: D5LR 1,000 ML IV ONE (06:00)
--- NOTE | 2022-01-01 06:09 | NUR ---
Admit bed requested Patient will be admitted to care of Admitted to Tele unit. Diagnosis Liver Cirrhosis, hypoglycemia, Neuropathy Inpatient (Yes or No) yes Observation (Yes or No) no Orientation concerns or request close to nursing station (Yes or No) yes Covid Status negative On vent or bipap no Isolation requirements no Needs a sitter no From Home (Yes or if No enter name of facility) yes Requires Dialysis (Yes or No) no
--- NOTE | 2022-01-01 07:30 | NUR ---
ASSUMED CARE OF PT AT THIS TIME. REPORT RECEIVED. PT HERE WITH C/O LOW BS. GCS 15 AT THIS TIME. VSS. RESP EVEN AND UNLABORED. PT STATES HE FORGOT TO EAT LAST NIGHT AFTER TAKING HIS INSULIN. AWAITING ADMISSION BED. WILL CONT TO MONITOR
[2022-01-01] MEDS ORDERED: D5LR 1,000 ML IV SCH (07:40)
--- NOTE | 2022-01-01 08:57 | NUR ---
AWAITING LACTULOSE FROM PHARMACY, MADE AWARE
--- NOTE | 2022-01-01 09:17 | NUR ---
Trenton woodward in [facility] - 01/01/22 at 0921 by [email or web address] Gregorio De León , zainab Tyler. ETA [id number]
--- NOTE | 2022-01-01 09:21 | NUR ---
Disregard previous note
[2022-01-01 09:29] LABS: BILIRUBIN,URINE NEGATIVE (NEGATIVE); CLARITY/URINE SL CLOUDY (CLEAR); COLOR,URINE YELLOW (YELLOW); GLUCOSE,URINE NEGATIVE (NEGATIVE); KETONES,URINE NEGATIVE (NEGATIVE); LEUKOCYTE ESTERASE ,URINE 1+ (NEGATIVE); NITRITE, URINE POSITIVE (NEGATIVE); PH,URINE 7.5 (5.0-8.0); PROTEIN URINE NEGATIVE (NEGATIVE)
[2022-01-01 09:35] LABS: BLOOD, URINE TRACE (NEGATIVE)
[2022-01-01 09:40] LABS: BACTERIA,URINE MODERATE /HPF (None Seen); URINE AMORPHOUS PHOSPHATES 1+ /HPF (None Seen)
--- NOTE | 2022-01-01 10:00 | NUR ---
PT RESTING COMFORTABLY. NO DISTRESS NOTED. RESP EVEN AND UNLABORED. VSS. WILL CONT TO MONITOR
--- NOTE | 2022-01-01 11:30 | NUR ---
RECEIVED PT FROM E.R., PT IS AA0, ALERT AND AWAKE, PT IS UNDER THE CARE OF DR GUTIERREZ WITH DX OF LIVER CIRRHOSIS, HYPOGLYCEMIA AND NEUROPATHY. PT EDUCATED ON THE USE OF CALL LIGHT, TV AND BED CONTROLS. FOR SAFETY PT REMINDED TO CALL NURSES FOR ASSISTANCE AND PAIN MEDS.CALL LIGHT AND BEDSIDE TABLE WITH WATER AND CUPS WNL REACH.
[2022-01-01] MEDS ORDERED: CIPROFLOXACIN HCL 500 MG TABLET PO ONE (12:00)
--- NOTE | 2022-01-01 12:11 | NUR ---
COVID VACCINE STATUS: 2 SHOTS ONLY, NO BOOSTER.
[2022-01-01 12:15] VITALS: BP_SYST 122
[2022-01-01] MEDS: INSULIN REGULAR, HUMAN 100 UNITS/ML, 10 ML VIAL (humuLIN R) SUBCUT PRN ×4 (12:34→21:12)
[2022-01-01] MEDS: BETHANECHOL CHLORIDE 25 MG TABLET (URECHOLINE) PO SCH ×2 (14:21→21:09)
[2022-01-01] MEDS: LACTULOSE 20 GM/30 ML UDC PO SCH ×2 (14:24→21:09)
--- NOTE | 2022-01-01 14:30 | NUR ---
PAGED DR GUTIERREZ FOR BS = 431. PT GIVEN 12 UNITS OF COVERAGE INSULIN. Addendum: 01/01/22 at 1437 by Aries Swann RN DR GUTIERREZ CALLED [facility], NEW ORDERS GIVEN AND CARRIED OUT.
[2022-01-01 17:18] VITALS: BP_SYST 128
--- NOTE | 2022-01-01 17:20 | NUR ---
paged dr liu for bs = 179, 551, sliding scale 12 units given as ordered.
[2022-01-01] MEDS ORDERED: INSULIN REGULAR, HUMAN 100 UNITS/ML, 10 ML VIAL SUBCUT ONE (17:30)
[2022-01-01] MEDS: INSULIN NPH 100 UNITS/ML 10 ML VIAL SUBCUT SCH (18:06)
[2022-01-01 20:24] VITALS: BP_SYST 165
[2022-01-01] MEDS: RIFAXIMIN 550 MG TABLET PO SCH (21:00)
[2022-01-01] MEDS ORDERED: ROPINIROLE HCL 2 MG PO SCH (21:00)
[2022-01-01] MEDS ORDERED: TEMAZEPAM 15 MG CAPSULE PO SCH (21:00)
[2022-01-01] MEDS: PROPRANOLOL HCL 10 MG TABLET (INDERAL) PO SCH (21:10)
[2022-01-01] MEDS: CIPROFLOXACIN HCL 500 MG TABLET PO SCH (22:19)
--- NOTE | 2022-01-01 22:32 | NUR ---
EDUCATION ON CHILD DEVELOPMENT SPECIALIST FOR PREVENTION OF FATAL ARRHYTHMIA. PATIENT REFUSES MONITOR. ANISH ANDERSON RN
[2022-01-02 00:34] VITALS: BP_SYST 140
[2022-01-02] MEDS: INSULIN NPH 100 UNITS/ML 10 ML VIAL SUBCUT SCH (06:52)
[2022-01-02 06:53] LABS: BASOPHILS % (AUTO) 0.4 % (0.0-2.0); EOSINOPHILS # (AUTO) 0.2 K/uL (0.0-0.4); EOSINOPHILS % (AUTO) 3.8 % (0.0-4.0); HEMATOCRIT 34.4 % (36-54); HEMOGLOBIN 12.3 g/dL (14.0-18.0); LYMPHOCYTES % (AUTO) 22.3 % (20.5-51.5); MEAN CORPUSCULAR HEMOGLOBIN 34 pg (27-31); MEAN CORPUSCULAR HGB CONC 36 % (32-36); MEAN CORPUSCULAR VOLUME 94 fL (79.0-98.0); MONOCYTES # (AUTO) 0.7 K/uL (0.0-1.0); NEUTROPHILS # (AUTO) 2.4 K/uL (1.8-7.7); NEUTROPHILS % (AUTO) 56.5 % (40.0-70.0); PLATELET COUNT (AUTO) 54 K/uL (130-430); RED BLOOD CELL COUNT(AUTO) 3.65 MIL/uL (4.2-6.2); WHITE BLOOD COUNT (AUTO) 4.3 K/uL (4.8-10.8)
[2022-01-02] MEDS: INSULIN REGULAR, HUMAN 100 UNITS/ML, 10 ML VIAL (humuLIN R) SUBCUT PRN ×4 (06:56→22:25)
[2022-01-02 07:54] LABS: ALBUMIN 2.7 g/dL (3.4-4.8); CALCIUM 7.9 mg/dL (8.4-11.0); CREATININE 0.89 mg/dL (0.55-1.30); POTASSIUM 4.2 mmol/L (3.5-5.1); TOTAL BILIRUBIN 2.5 mg/dL (0.0-1.0)
[2022-01-02 07:58] VITALS: BP_SYST 124
[2022-01-02] MEDS: RIFAXIMIN 550 MG TABLET PO SCH ×2 (08:15→22:27)
[2022-01-02] MEDS: SPIRONOLACTONE 25 MG TABLET (ALDACTONE) PO SCH (08:16)
[2022-01-02] MEDS: CHOLECALCIFEROL (VITAMIN D3) 2,000 UNIT TABLET PO SCH (08:16)
[2022-01-02] MEDS: LACTULOSE 20 GM/30 ML UDC PO SCH ×3 (08:16→20:42)
[2022-01-02] MEDS: BETHANECHOL CHLORIDE 25 MG TABLET (URECHOLINE) PO SCH ×3 (08:16→20:42)
[2022-01-02] MEDS: ASCORBIC ACID 500 MG TABLET PO SCH (08:16)
[2022-01-02] MEDS: FOLIC ACID 1 MG TABLET PO SCH (08:17)
[2022-01-02] MEDS: FUROSEMIDE 20 MG TABLET PO SCH (08:17)
[2022-01-02] MEDS: PROPRANOLOL HCL 10 MG TABLET (INDERAL) PO SCH ×2 (08:17→20:42)
[2022-01-02] MEDS ORDERED: SPIRONOLACTONE 50 MG TABLET (ALDACTONE) PO SCH (09:00)
[2022-01-02] MEDS ORDERED: PROPRANOLOL HCL PO SCH (09:00)
[2022-01-02] MEDS ORDERED: FUROSEMIDE 40 MG TABLET PO SCH (09:00)
[2022-01-02] MEDS: CIPROFLOXACIN HCL 500 MG TABLET PO SCH ×2 (10:14→22:27)
--- NOTE | 2022-01-02 11:59 | NUR ---
ATTENDING MD DR GUTIERREZ WAS CALLED, RE: BS > 400. SPOKE TO
[2022-01-02] MEDS ORDERED: INSULIN NPH 100 UNITS/ML 10 ML VIAL SUBCUT ONE (12:15)
[2022-01-02] MEDS ORDERED: INSULIN REGULAR, HUMAN 100 UNITS/ML, 10 ML VIAL SUBCUT ONE ×2 (12:15→17:30)
[2022-01-02 16:01] VITALS: BP_SYST 137
[2022-01-02] MEDS ORDERED: LACTULOSE 20 GM/30 ML UDC PO ONE (17:00)
--- NOTE | 2022-01-02 17:39 | NUR ---
LUNCH TIME BLOOD SUGAR = 479 , INFORMED DR GUTIERREZ, NEW ORDERS RECEIVED AND CARRIED OUT DINNER TIME BLOOD SUGAR = 469, INFORMED DR GUTIERREZ, NEW ORDERS RECEIVED AND CARRIED OUT. PLEASE SEE ALL ORDER RELATING TO BS.
[2022-01-02 20:40] VITALS: BP_SYST 124
[2022-01-02] MEDS ORDERED: TEMAZEPAM 15 MG CAPSULE PO SCH (21:00)
[2022-01-02] MEDS ORDERED: INSULIN GLARGINE 100 UNITS/ML 10 ML VIAL SUBCUT SCH (21:00)
[2022-01-02] MEDS ORDERED: LACTULOSE 20 GM/30 ML UDC PO SCH (21:00)
[2022-01-03 00:58] VITALS: BP_SYST 124
[2022-01-03 06:48] LABS: ALBUMIN 2.5 g/dL (3.4-4.8); CALCIUM 7.9 mg/dL (8.4-11.0); CREATININE 0.91 mg/dL (0.55-1.30); POTASSIUM 3.8 mmol/L (3.5-5.1); TOTAL BILIRUBIN 1.4 mg/dL (0.0-1.0)
[2022-01-03 08:00] VITALS: BP_SYST 100
--- NOTE | 2022-01-03 08:00 | NUR ---
Morning notes: Pt A/Ox4 resting in bed. No s/s of respiratory or cardiac distress, no s/s of hypoglycemia. IV site is clean dry and intact. Fall and safety precautions in place, call light with in reach, will continue to monitor.
[2022-01-03 08:04] LABS: BASOPHILS % (AUTO) 0.5 % (0.0-2.0); EOSINOPHILS # (AUTO) 0.2 K/uL (0.0-0.4); EOSINOPHILS % (AUTO) 4.4 % (0.0-4.0); HEMATOCRIT 30.5 % (36-54); HEMOGLOBIN 10.9 g/dL (14.0-18.0); LYMPHOCYTES # (AUTO) 0.9 K/uL (1.0-5.5); LYMPHOCYTES % (AUTO) 24.6 % (20.5-51.5); MEAN CORPUSCULAR HEMOGLOBIN 34 pg (27-31); MEAN CORPUSCULAR HGB CONC 36 % (32-36); MEAN CORPUSCULAR VOLUME 94 fL (79.0-98.0); MONOCYTES # (AUTO) 0.6 K/uL (0.0-1.0); MONOCYTES % (AUTO) 15.7 % (1.7-9.3); NEUTROPHILS % (AUTO) 54.8 % (40.0-70.0); RED BLOOD CELL COUNT(AUTO) 3.24 MIL/uL (4.2-6.2); WHITE BLOOD COUNT (AUTO) 3.7 K/uL (4.8-10.8)
[2022-01-03] MEDS ORDERED: INSULIN GLARGINE 100 UNITS/ML 10 ML VIAL SUBCUT SCH (09:00)
[2022-01-03 09:30] LABS: PLATELET COUNT (AUTO) 45 K/uL (130-430)
[2022-01-03] MEDS: FUROSEMIDE 20 MG TABLET PO SCH (09:45)
[2022-01-03] MEDS: RIFAXIMIN 550 MG TABLET PO SCH (09:45)
[2022-01-03] MEDS: LACTULOSE 20 GM/30 ML UDC PO SCH (09:45)
[2022-01-03] MEDS: BETHANECHOL CHLORIDE 25 MG TABLET (URECHOLINE) PO SCH (09:45)
[2022-01-03] MEDS: ASCORBIC ACID 500 MG TABLET PO SCH (09:46)
[2022-01-03] MEDS: CIPROFLOXACIN HCL 500 MG TABLET PO SCH (09:46)
[2022-01-03] MEDS: CHOLECALCIFEROL (VITAMIN D3) 2,000 UNIT TABLET PO SCH (09:46)
[2022-01-03] MEDS: SPIRONOLACTONE 25 MG TABLET (ALDACTONE) PO SCH (09:47)
[2022-01-03] MEDS: PROPRANOLOL HCL 10 MG TABLET (INDERAL) PO SCH (09:47)
[2022-01-03] MEDS: FOLIC ACID 1 MG TABLET PO SCH (09:47)
[2022-01-03] MEDS: INSULIN REGULAR, HUMAN 100 UNITS/ML, 10 ML VIAL (humuLIN R) SUBCUT PRN (12:01)
[2022-01-03 12:10] VITALS: BP_SYST 100
[2022-01-03] MEDS ORDERED: SSREG SUBCUT (13:28)
--- NOTE | 2022-01-03 13:30 | NUR ---
D/C Patient Patient given medication reconciliation form and D/C instructions. Exit Care provided. Patient verbalized understanding. MD discussed with patient the results and treatment provided. Ambulatory with steady gait for discharge to home. Patient in stable condition, ID band removed. IV catheter removed, intact and dressing applied, no active bleeding. Rx of Regular insulin sliding scale, 10 units if blood sugar is over 300 was given. Patient educated on pain management. All belongings sent with patient.
--- NOTE | 2022-01-03 13:52 | NUR ---
Discharge Planning: DCP faxed pt referral to [facility]#[phone] DCP to follow up
[2022-01-09] MEDS ORDERED: INSU100I26 SQ (18:22)
== END 2022-01-03 13:45 | disposition home health service (06) | DRG 441 ==
LOC: SED 23:40 → STU 01-01 06:00 → SMU 01-02 22:40
PROVIDERS: ADMIT Internal Medicine; ATTEND Internal Medicine
DX: K72.90 Hepatic failure, unspecified without coma (principal); G92.9 Unspecified toxic encephalopathy; E44.0 Moderate protein-calorie malnutrition; N39.0 Urinary tract infection, site not specified; E87.1 Hypo-osmolality and hyponatremia; E11.649 Type 2 diabetes mellitus with hypoglycemia without coma; I10 Essential (primary) hypertension; K74.60 Unspecified cirrhosis of liver; E83.51 Hypocalcemia; E80.6 Other disorders of bilirubin metabolism; Z20.822 Contact with and (suspected) exposure to COVID-19; R74.01 Elevation of levels of liver transaminase levels; E87.8 Other disorders of electrolyte and fluid balance, not elsewhere classified; Z88.5 Allergy status to narcotic agent; Z88.0 Allergy status to penicillin; Z88.2 Allergy status to sulfonamides; Z79.899 Other long term (current) drug therapy
CPT/HCPCS: 36415; 80053; 81000; 82140; 82962; 83690; 85025; 87086; 96360; 96361; 99285; G0378; J1815; J7030

== ENCOUNTER 2022-06-22 17:46 | Inpatient (IN) | payer OTHER, MEDICAID ==
[~2022-06-22] VITALS: Ht 177.8 cm; Wt 90.3 kg
[2022-06-22 17:46] VITALS: BP_SYST 141
[~2022-06-22 17:46] MED LIST changes: +INSU100I26 SQ; +SSREG SUBCUT
[2022-06-22 19:08] LABS: BASOPHILS % (AUTO) 0.3 % (0.0-2.0); EOSINOPHILS # (AUTO) 0.2 K/uL (0.0-0.4); EOSINOPHILS % (AUTO) 4.2 % (0.0-4.0); HEMATOCRIT 38.3 % (36-54); HEMOGLOBIN 13.4 g/dL (14.0-18.0); LYMPHOCYTES # (AUTO) 0.7 K/uL (1.0-5.5); MEAN CORPUSCULAR HEMOGLOBIN 32 pg (27-31); MEAN CORPUSCULAR HGB CONC 35 % (32-36); MEAN CORPUSCULAR VOLUME 92 fL (79.0-98.0); MONOCYTES # (AUTO) 0.5 K/uL (0.0-1.0); MONOCYTES % (AUTO) 10.1 % (1.7-9.3); NEUTROPHILS # (AUTO) 3.5 K/uL (1.8-7.7); NEUTROPHILS % (AUTO) 70.4 % (40.0-70.0); PLATELET COUNT (AUTO) 51 K/uL (130-430); RED BLOOD CELL COUNT(AUTO) 4.18 MIL/uL (4.2-6.2)
[2022-06-22 19:54] LABS: INR 1.1 (0.80-1.20); PROTHROMBIN TIME 11.3 SECS (9.5-12.5)
[2022-06-22 19:59] LABS: ANION GAP 5 (5-15); CALCIUM 9.9 mg/dL (8.4-11.0); CHLORIDE 103 mmol/L (98-107); CREATININE 0.93 mg/dL (0.55-1.30); GLUCOSE 98 mg/dL (70-99); UREA NITROGEN, BLOOD 19 mg/dL (8-21)
[2022-06-22 20:13] LABS: ALANINE AMINOTRANSFERASE 41 U/L (12-78); ALBUMIN 2.7 g/dL (3.4-4.8); ASPARTATE AMINOTRANSFERASE 47 U/L (10-37); TOTAL BILIRUBIN 2.2 mg/dL (0.0-1.0)
[2022-06-22 20:18] LABS: GFR AFRICAN AMERICAN 104 mL/min (>90)
[2022-06-22 20:25] LABS: BILIRUBIN,URINE NEGATIVE (NEGATIVE); BLOOD, URINE 2+ (NEGATIVE); COLOR,URINE YELLOW (YELLOW); GLUCOSE,URINE TRACE (NEGATIVE); KETONES,URINE NEGATIVE (NEGATIVE); LEUKOCYTE ESTERASE ,URINE 3+ (NEGATIVE); NITRITE, URINE NEGATIVE (NEGATIVE); PH,URINE 7.5 (5.0-8.0); PROTEIN URINE NEGATIVE (NEGATIVE); UROBILINOGEN,URINE 0.2 (0.2-1.0)
[2022-06-22 20:27] LABS: CLARITY/URINE SLIGHTLY HAZY (CLEAR)
[2022-06-22] MEDS ORDERED: LACTULOSE 20 GM/30 ML UDC PO ONE (20:30)
[2022-06-22 20:40] LABS: BACTERIA,URINE MODERATE /HPF (None Seen); HYALINE CASTS, URINE 0-10 /LPF (None Seen); MUCUS,URINE None Seen /LPF (None Seen)
[2022-06-22] MEDS ORDERED: D5NS 1,000 ML IV SCH (20:45)
[2022-06-22] MEDS ORDERED: MAGNESIUM SULFATE 50 ML IV PRN (21:30)
[2022-06-22] MEDS ORDERED: DOCUSATE SODIUM 100 MG CAPSULE PO PRN (21:30)
[2022-06-22] MEDS ORDERED: POTASSIUM CHLORIDE 20 MEQ TAB.PRT.SR PO PRN (21:30)
[2022-06-22] MEDS ORDERED: DEXTROSE 50% JECT 50 ML DISP.SYRIN IVP PRN (21:30)
[2022-06-22] MEDS ORDERED: ONDANSETRON HCL 4 MG/2 ML VIAL IVP PRN (21:30)
[2022-06-22] MEDS ORDERED: MUPIROCIN 2% TOPICAL OINTMENT 22 GM NS PRN (21:30)
[2022-06-22] MEDS ORDERED: LORazepam 2 MG/ML VIAL IVP PRN (21:30)
[2022-06-22] MEDS ORDERED: ZOLPIDEM TARTRATE 5 MG TABLET PO PRN (21:30)
[2022-06-22] MEDS ORDERED: NALOXONE HCL 0.4 MG/ML AMP (NARCAN) IVP PRN (22:30)
[2022-06-22] MEDS: MORPHINE 2 MG/ML INJ. SYRINGE IVP PRN (23:31)
[2022-06-23 01:39] VITALS: BP_SYST 154
[2022-06-23] MEDS: MORPHINE 2 MG/ML INJ. SYRINGE IVP PRN (06:50)
[2022-06-23] MEDS: INSULIN LISPRO SLIDING SCALE 100 UNITS/ML, 3 ML VIAL (humaLOG) SUBCUT PRN ×4 (06:59→20:39)
[2022-06-23 08:01] VITALS: BP_SYST 143
[2022-06-23 08:51] LABS: BASOPHILS % (AUTO) 0.2 % (0.0-2.0); EOSINOPHILS # (AUTO) 0.1 K/uL (0.0-0.4); HEMATOCRIT 37.7 % (36-54); HEMOGLOBIN 13.2 g/dL (14.0-18.0); LYMPHOCYTES # (AUTO) 0.7 K/uL (1.0-5.5); LYMPHOCYTES % (AUTO) 14.6 % (20.5-51.5); MEAN CORPUSCULAR HEMOGLOBIN 32 pg (27-31); MEAN CORPUSCULAR HGB CONC 35 % (32-36); MEAN CORPUSCULAR VOLUME 92 fL (79.0-98.0); MONOCYTES # (AUTO) 0.5 K/uL (0.0-1.0); MONOCYTES % (AUTO) 9.5 % (1.7-9.3); NEUTROPHILS # (AUTO) 3.6 K/uL (1.8-7.7); NEUTROPHILS % (AUTO) 72.7 % (40.0-70.0); PLATELET COUNT (AUTO) 50 K/uL (130-430); RED BLOOD CELL COUNT(AUTO) 4.11 MIL/uL (4.2-6.2); RED CELL DISTRIBUTION WIDTH 13.7 % (9.0-15.0)
[2022-06-23 09:06] LABS: CALCIUM 8.7 mg/dL (8.4-11.0); CREATININE 0.99 mg/dL (0.55-1.30)
[2022-06-23] MEDS: SPIRONOLACTONE 50 MG TABLET (ALDACTONE) PO SCH (09:59)
[2022-06-23] MEDS: CHOLECALCIFEROL (VITAMIN D3) 2,000 UNIT TABLET PO SCH (09:59)
[2022-06-23] MEDS: BETHANECHOL CHLORIDE 25 MG TABLET (URECHOLINE) PO SCH ×3 (10:00→20:37)
[2022-06-23] MEDS: FUROSEMIDE 40 MG TABLET PO SCH (10:00)
[2022-06-23] MEDS: RIFAXIMIN 550 MG TABLET PO SCH ×2 (10:01→20:38)
[2022-06-23] MEDS: FOLIC ACID 1 MG TABLET PO SCH (10:01)
[2022-06-23] MEDS: lisinopriL 20 MG TABLET PO SCH (10:01)
[2022-06-23] MEDS: DOCUSATE SODIUM 100 MG CAPSULE PO SCH ×2 (10:02→21:00)
[2022-06-23] MEDS: LACTULOSE 20 GM/30 ML UDC PO SCH ×3 (10:02→20:45)
[2022-06-23] MEDS: cefTRIAXone 1 GM in D5W 50 ML IV SCH (10:35)
[2022-06-23 12:45] VITALS: BP_SYST 62
[2022-06-23 16:45] VITALS: BP_SYST 122
[2022-06-23] MEDS: ACETAMINOPHEN 325 MG TABLET PO PRN (18:24)
[2022-06-24 00:18] VITALS: BP_SYST 118
[2022-06-24 07:58] LABS: BASOPHILS % (AUTO) 0.2 % (0.0-2.0); EOSINOPHILS # (AUTO) 0.2 K/uL (0.0-0.4); EOSINOPHILS % (AUTO) 3.3 % (0.0-4.0); HEMATOCRIT 35.1 % (36-54); HEMOGLOBIN 12.4 g/dL (14.0-18.0); LYMPHOCYTES # (AUTO) 0.8 K/uL (1.0-5.5); MEAN CORPUSCULAR HEMOGLOBIN 32 pg (27-31); MEAN CORPUSCULAR HGB CONC 35 % (32-36); MEAN CORPUSCULAR VOLUME 92 fL (79.0-98.0); MONOCYTES # (AUTO) 0.5 K/uL (0.0-1.0); MONOCYTES % (AUTO) 9.4 % (1.7-9.3); NEUTROPHILS # (AUTO) 3.6 K/uL (1.8-7.7); NEUTROPHILS % (AUTO) 72.1 % (40.0-70.0); RED BLOOD CELL COUNT(AUTO) 3.82 MIL/uL (4.2-6.2); RED CELL DISTRIBUTION WIDTH 13.9 % (9.0-15.0)
[2022-06-24 08:01] VITALS: BP_SYST 132
[2022-06-24 08:30] LABS: ALBUMIN 2.5 g/dL (3.4-4.8); BILIRUBIN,DIRECT 0.9 mg/dL (0.0-0.3); CALCIUM 8.6 mg/dL (8.4-11.0); CREATININE 0.97 mg/dL (0.55-1.30); TOTAL BILIRUBIN 2.6 mg/dL (0.0-1.0)
[2022-06-24 08:45] LABS: INR 1.2 (0.80-1.20)
[2022-06-24] MEDS: FUROSEMIDE 40 MG TABLET PO SCH (09:59)
[2022-06-24] MEDS: SPIRONOLACTONE 50 MG TABLET (ALDACTONE) PO SCH (09:59)
[2022-06-24] MEDS: BETHANECHOL CHLORIDE 25 MG TABLET (URECHOLINE) PO SCH ×2 (09:59→16:19)
[2022-06-24] MEDS: DOCUSATE SODIUM 100 MG CAPSULE PO SCH (09:59)
[2022-06-24] MEDS: CHOLECALCIFEROL (VITAMIN D3) 2,000 UNIT TABLET PO SCH (10:00)
[2022-06-24] MEDS: lisinopriL 20 MG TABLET PO SCH (10:00)
[2022-06-24] MEDS: LACTULOSE 20 GM/30 ML UDC PO SCH ×2 (10:01→16:19)
[2022-06-24] MEDS: FOLIC ACID 1 MG TABLET PO SCH (10:01)
[2022-06-24] MEDS: RIFAXIMIN 550 MG TABLET PO SCH (10:01)
[2022-06-24] MEDS ORDERED: Lactulose PO (10:30)
[2022-06-24] MEDS ORDERED: ROCPM1 IV (10:32)
[2022-06-24 10:50] LABS: PLATELET COUNT (AUTO) 49 K/uL (130-430)
[2022-06-24] MEDS: INSULIN LISPRO SLIDING SCALE 100 UNITS/ML, 3 ML VIAL (humaLOG) SUBCUT PRN ×2 (12:13→16:50)
[2022-06-24] MEDS ORDERED: INSU100V9 SQ (12:18)
[2022-06-24 12:30] VITALS: BP_SYST 141
[2022-06-24] MEDS ORDERED: INSULIN GLARGINE 100 UNITS/ML, 10 ML VIAL SUBCUT ONE (12:30)
[2022-06-24] MEDS: cefTRIAXone 1 GM in D5W 50 ML IV SCH (12:36)
[2022-06-24] MEDS: ACETAMINOPHEN 325 MG TABLET PO PRN (12:44)
[2022-06-24 15:57] VITALS: BP_SYST 132
[2022-06-25] MEDS ORDERED: INSULIN GLARGINE 100 UNITS/ML, 10 ML VIAL SUBCUT SCH (09:00)
== END 2022-06-24 21:23 | DRG 441 ==
LOC: SED 17:46 → STU 20:44
PROVIDERS: ADMIT General Practice; ATTEND General Practice
DX: K76.82 Hepatic encephalopathy (principal); E43 Unspecified severe protein-calorie malnutrition; E72.20 Disorder of urea cycle metabolism, unspecified; N39.0 Urinary tract infection, site not specified; K74.60 Unspecified cirrhosis of liver; D69.6 Thrombocytopenia, unspecified; E11.9 Type 2 diabetes mellitus without complications; E80.6 Other disorders of bilirubin metabolism; R26.9 Unspecified abnormalities of gait and mobility; Z20.822 Contact with and (suspected) exposure to COVID-19; I11.0 Hypertensive heart disease with heart failure; I50.9 Heart failure, unspecified; Z66 Do not resuscitate; Z95.2 Presence of prosthetic heart valve; Z88.5 Allergy status to narcotic agent; Z88.0 Allergy status to penicillin; Z88.2 Allergy status to sulfonamides; Z88.8 Allergy status to other drugs, medicaments and biological substances
CPT/HCPCS: 36415; 36600; 70450-TC; 71045; 76376; 80048; 80053; 80076; 81000; 82140; 82803-TC; 82962; 83036; 83605; 83735; 83880; 84484; 85025; 85610-TC; 85730-TC; 87040; 87081; 87086; 93005; 96365; 96375; 99285; G0378; J0696; J1815; J1956; J2270; J7060